=== PATIENT | female | born 1980 | race Caucasian/White ===

== ENCOUNTER 2017-02-15 09:33 | Emergency (ER) | payer MEDICARE, OTHER ==
--- NOTE | 2017-02-15 09:51 | ED ---
Back Pain HPI - General Chief Complaint: Back Pain/Injury Stated Complaint: Fell 02/13 back pain Time Seen by Provider: 02/15/17 09:45 Source: patient, RN notes reviewed Mode of arrival: ambulatory Limitations: no limitations - History of Present Illness Initial Comments: This a 36-year-old female presents emergency Department chief complaint low back pain. Patient states that Wednesday she was wearing flip-flops in which she was on wood stairs and slipped because they were slippery. Patient states she fell directly onto her back and slid down the steps. Patient states she was only 4 steps. Patient denies headache, head injury, loss consciousness, neck pain or any upper back pain or upper extremity injury. She states that she did have some pain that radiates down her right leg that has resolved. Patient is concerned that she has a history of degenerative disc disease, bulging discs and uses see [facility] Patient states she is currently sees Dr. Stevens. Patient denies any current pain medication denies any bowel bladder incontinence or retention. - Related Data Home Medications Medication Instructions Recorded Confirmed Ibuprofen [Motrin] 800 mg PO BID PRN 11/30/13 02/15/17 buPROPion XL [Wellbutrin XL] 450 mg PO DAILY 06/12/15 02/15/17 ALPRAZolam [Xanax] 0.25 mg PO DAILY PRN 02/15/17 02/15/17 Docusate [Colace] 100 mg PO BID 02/15/17 02/15/17 Hydrocodone/Acetaminophen [Brandon 1 tab PO DAILY PRN 02/15/17 02/15/17 5-325] Oxybutynin Chloride 5 mg PO BID 02/15/17 02/15/17 busPIRone HCL [Buspar] 30 mg PO BID 02/15/17 02/15/17 lamoTRIgine [LaMICtal] 100 mg PO HS 02/15/17 02/15/17 lamoTRIgine [LaMICtal] 200 mg PO DAILY 02/15/17 02/15/17 Previous Rx's Medication Instructions Recorded Cyclobenzaprine [Flexeril] 10 mg PO TID PRN #15 tab 02/15/17 Allergies Allergy/AdvReac Type Severity Reaction Status Date / Time No Known Allergies Allergy Verified 07/24/17 09:50 Review of Systems ROS Statement: Those systems with pertinent positive or pertinent negative responses have been documented in the HPI. ROS Other: All systems not noted in ROS Statement are negative. Past Medical History Past Medical History: GERD/Reflux, Neurologic Disorder, Osteoarthritis (OA) Additional Past Medical History / Comment(s): MIGRAINES. OSTEO IN LOWER BACK History of Any Multi-Drug Resistant Organisms: None Reported Past Surgical History: Appendectomy, Tubal Ligation Additional Past Surgical History / Comment(s): PELVIC LAPROSCOPY Past Anesthesia/Blood Transfusion Reactions: No Reported Reaction Past Psychological History: Anxiety, Bipolar, PTSD Smoking Status: Current every day smoker Past Alcohol Use History: Occasional Past Drug Use History: None Reported - Past Family History Mother Additional Family Medical History / Comment(s): MATERNAL GRANDMOTHER LUNG CANCER General Exam Limitations: no limitations General appearance: alert, in no apparent distress Head exam: Present: atraumatic, normocephalic, normal inspection Eye exam: Present: normal appearance, PERRL, EOMI. Absent: scleral icterus, conjunctival injection, periorbital swelling Neck exam: Present: normal inspection, full ROM. Absent: tenderness, meningismus, lymphadenopathy Respiratory exam: Present: normal lung sounds bilaterally. Absent: respiratory distress, wheezes, rales, rhonchi, stridor Cardiovascular Exam: Present: regular rate, normal rhythm, normal heart sounds. Absent: systolic murmur, diastolic murmur, rubs, gallop, clicks GI/Abdominal exam: Present: soft, normal bowel sounds. Absent: distended, tenderness, guarding, rebound, rigid Extremities exam: Present: normal inspection, full ROM, normal capillary refill. Absent: tenderness, pedal edema, joint swelling, calf tenderness Back exam: Present: full ROM (Mild discomfort), tenderness (Generalized lumbar region), paraspinal tenderness. Absent: normal inspection ( swelling noted to the lower lumbar region), CVA tenderness (R), CVA tenderness (L), vertebral tenderness Neurological exam: Present: alert, oriented X3, CN II-XII intact, reflexes normal. Absent: motor sensory deficit Skin exam: Present: warm, dry, intact, normal color. Absent: rash Course Vital Signs 02/15/17 09:36 Temperature 98.2 F Pulse Rate 72 Respiratory 17 Rate Blood Pressure 129/77 O2 Sat by Pulse 100 Oximetry Medical Decision Making - Medical Decision Making 36-year-old female presented emergency department for fall back pain. There is no acute fracture. Patient does have chronic back pain as it is. Patient we discharge has no red flecks symptoms. Disposition Clinical Impression: Lumbar back pain Disposition: HOME SELF-CARE Condition: Stable Instructions: Acute Low Back Pain (ED) Additional Instructions: Please return to the Emergency Department if symptoms worsen or any other concerns. Prescriptions: Cyclobenzaprine [Flexeril] 10 mg PO TID PRN #15 tab PRN Reason: Muscle Spasm Referrals: Imtiaz Stevens III, MD [Primary Care Provider] - 1-2 days Time of Disposition: 10:24
--- NOTE | 2017-02-15 10:10 | XR ---
EXAMINATION TYPE: XR lumbosacral spine min 4V , 5 VIEWS DATE OF EXAM ORDERED: 02/15/2017 HISTORY: Pain. COMPARISON: None. FINDINGS: The AP projection is rotated. It is therefore difficult to assess the pedicles. Vertebral body height and alignment are maintained. There is no spondylolysis or spondylolisthesis. D isc spaces are maintained. There is mild facet arthropathy on the right at L5-S1 and L4-5. IMPRESSION: 1. NO ACUTE OSSEOUS LESION. 2. MINIMAL DEGENERATIVE CHANGE.
[2017-02-15 10:46] VITALS: BP 116/67; PULSE 78; RESP 16; TEMP 98.1
== END 2017-02-15 10:46 | disposition home or self-care (01) ==
LOC: EC 09:33
DX: M54.5 Low back pain (principal); F17.200 Nicotine dependence, unspecified, uncomplicated; F31.9 Bipolar disorder, unspecified; F43.10 Post-traumatic stress disorder, unspecified; F41.9 Anxiety disorder, unspecified; Z79.899 Other long term (current) drug therapy; W10.9XXA Fall (on) (from) unspecified stairs and steps, initial encounter
CPT/HCPCS: 72110; 99283

== ENCOUNTER → 2017-11-11 | Outpatient (CLI) | payer MEDICARE, OTHER ==
[2017-11-10 14:55] VITALS: BMI 37.8
[2017-11-11 11:56] VITALS: BP 137/90; PULSE 78; RESP 16
--- NOTE | 2017-11-11 13:09 | P.CONS ---
History of Present Illness - Reason for Consult Consult date: 11/11/17 - History of Present Illness This is a 37 years old female with a chronic history of severe neck pain and low back pain, the low back pain started 8 years ago, he denies any initiating event, no history of trauma or heavy lifting or car accident, the pain is constant and increases with any activity, and radiated to the lower extremity bilaterally, patient has done physical therapy multiple times without any significant benefit, and she tried pain medication Ultram she did not benefit from it, and she is currently using Motrin 800 mg 3 times a day when necessary and [place] 10/325 when necessary, she denies any side effect of the medications, Also patient complaining of severe neck pain with radiation to the upper extremity associated with numbness and tingling sensation, she denies any motor or sensory deficit in the upper or lower extremities, she has no fever or night sweats, she has no change in the bowel movement or urination. She was evaluated by spine surgeon Dr. Iyer, and he referred her, to have interventional pain management Past Medical History Past Medical History: GERD/Reflux, Neurologic Disorder, Osteoarthritis (OA) Additional Past Medical History / Comment(s): MIGRAINES. OSTEO IN LOWER BACK, DDD, History of Any Multi-Drug Resistant Organisms: None Reported Past Surgical History: Appendectomy, Hysterectomy, Tubal Ligation Additional Past Surgical History / Comment(s): PELVIC LAPAROSCOPY, PILONIDAL CYSTECTOMY Past Anesthesia/Blood Transfusion Reactions: No Reported Reaction Past Psychological History: Anxiety, Bipolar, Panic Disorder, PTSD Smoking Status: Current every day smoker Past Alcohol Use History: Rare Additional Past Alcohol Use History / Comment(s): SMOKES 1/2PPD SINCE AGE 10 Past Drug Use History: None Reported - Past Family History Mother Additional Family Medical History / Comment(s): MATERNAL GRANDMOTHER LUNG CANCER Medications and Allergies Home Medications Medication Instructions Recorded Confirmed Type Ibuprofen [Motrin] 800 mg PO BID PRN 11/30/13 11/11/17 History buPROPion XL [Wellbutrin XL] 300 mg PO DAILY 06/12/15 11/11/17 History ALPRAZolam [Xanax] 0.25 mg PO DAILY PRN 02/15/17 11/11/17 History Docusate [Colace] 100 mg PO BID 07/24/17 04/19/18 History Hydrocodone/Acetaminophen [[place] 1 tab PO DAILY PRN 02/15/17 11/11/17 History 5-325] Oxybutynin Chloride 5 mg PO BID 02/15/17 11/11/17 History lamoTRIgine [LaMICtal] 100 mg PO HS 02/15/17 11/11/17 History lamoTRIgine [LaMICtal] 200 mg PO DAILY 02/15/17 11/11/17 History Allergies Allergy/AdvReac Type Severity Reaction Status Date / Time pecan nut Allergy Anaphylaxis Verified 11/11/17 11:42 Physical Exam Vitals: Vital Signs Pulse Resp BP Pulse Ox 11/11/17 11:43 78 16 137/90 98 Social history : smoker , NO ETOH , NO Illegaal drug use. Review of Systems : 1- Constitutional : no chills , no fever , no night sweats , 2- Ears : no ear discharge , no change in hearing 3-Nose, Mouth ,Throat ; no bleeding gums, no sore throat , no epistaxis , 4-Cardiovascular : Denies chest pain, , no orthopnea , no palpitation 5-Respiratory : Denies cough , no dyspnea , no hemoptysis 6-Gastrointestinal :, no change in bowel habits , no coffee- ground emesis . 7-Genitourinary : No hematuria , no discharge , no incontinence, 8-Musculoskeletal : No gait dysfunction , report low back pain , 9- Neurological : no ataxia , no tremor , no sezure , 10-Psychatric , no suicidal ideation no hallucination 11- Endocrine : no cold intolerence , no polyuria , no polydypsia , 12-Hematologic : no easy bleeding , no easy brusing , 13-Allergic / immunology : no angioedema , no wheezing ,no allergic rhinitis 14-Integumentary : no brttle nails , no change hair / nails , no foot/leg ulcers . Physical Examinations : 1-Constitutional : Cooperative , not in acute distress . 2-HEENT : nech ; supple , no Lymphadenopathy , no Thyromegaly , :eyes , no icterus, no photophobia . ENT : , normal oropharynx , no Thrush 3- Respiratory : Chest clear to auscultations Bilaterally , no wheezing . 4- Cardiovascular : regular rate and rhythem , S1 , S2 , no S3 , no S4. 5- Gastrointestinal: abdomen soft no tenderness , no organomegally . 6- Genitourinary : Defferred . 7-Integumentary : No cellulitis , no ulcers , normal skin turgor , no cyanotic . 8- neurologic : Cranial nerve II to XII intact , no focal neurological deffecit 9-psychatric : alert , oriented X 3 , appropriate affect , intact judgment and insight . 10-Lymphatic : no Lymphadenopathy. 11- musculoskeltal: normal gait Cervical Spine motor stregnth in the deltoid and biceps, normal right side , normal Left side motor stregnth biceps and the wrist extensors normal right side ,normal left side . motor stregnth in the triceps muscle . normal Right side , normal Left side deep tendon reflexes normal at the biceps , normal at Brachioradialis , normal at triceps. positive cervical facet loading test . Multiple trigger points in the cervical paravertebral muscles Thoracic spine examination= multiple trigger point identified in the thoracic paravertebral muscles Lumber spine moter stegnth lower extremities ,thigh and legs 5/5 Right side , 5/5 Left side deep tendon reflexes : normal Knee Jerk , normal ankle Jerk positive lumber facet Loading Test Range of motion of the lumbar spine Flexion 30 degrees, extension 10 degrees strait leg raising test , positive at 30 degree Fabere test positive RT and positive LT . Multiple trigger points in the lumbar paravertebral muscles Results Comments: MRI of the cervical spine done jun 2017, at [facility] showed C3 4 right foraminal disc protrusion and C4 5 disc protrusion C5-C6 right foraminal disc protrusion. MRI of the lumbar spine done June 2017 showed L3 4 disc bulging at L4 5 disc protrusion L5-S1 facet degeneration Assessment and Plan Plan: Assessment and plan=1-cervical radiculopathy 2-cervical degenerative disc disease 3-lumbar radiculopathy 4-lumbar spondylosis with facet arthropathy. 5-myofascial pain syndrome/fibromyalgia. Because patient complaining of more pain in the lumbar area and we can start the treatment in the lumbar area we will schedule patient to have lumbar epidural steroid injections, we will do the procedure twice and if she benefited then will focus our attention to the cervical area to do cervical epidural steroid injections, if patient had no benefit from the lumbar epidural steroid injections , then we will consider doing diagnostic medial branch block lumbar area, procedure risk and benefits and alternatives discussed with the patient and she agreed with proceeding, Patient could benefit from the TENS unit trial, Patient currently getting prescription refill of her pain medication from her primary care doctor [place] there and she is getting [place] 5/325 ,and Motrin 800 mg 3 times a day she denies any side effect of the medication, and she reported that the current pain medication helping her control her pain and all activities of daily livings. Time with Patient: Greater than 30
== END | disposition home or self-care (01) ==
LOC: PNWHC3 11:38
PROVIDERS: ATTEND Specialist
DX: M50.10 Cervical disc disorder with radiculopathy, unspecified cervical region (principal); M47.26 Other spondylosis with radiculopathy, lumbar region; M46.96 Unspecified inflammatory spondylopathy, lumbar region; M19.90 Unspecified osteoarthritis, unspecified site; M79.1 Myalgia; R29.90 Unspecified symptoms and signs involving the nervous system; M79.7 Fibromyalgia; F17.200 Nicotine dependence, unspecified, uncomplicated; Z91.010 Allergy to peanuts; Z79.899 Other long term (current) drug therapy; Z79.891 Long term (current) use of opiate analgesic
CPT/HCPCS: 99211

== ENCOUNTER 2017-11-29 06:17 | Day surgery (SDC) | payer MEDICARE, OTHER ==
[2017-11-26 12:30] VITALS: BMI 37.8
[2017-11-29] MEDS ORDERED: LACTATED RINGERS 1,000 ML IV SCH (07:15)
[2017-11-29 07:20] VITALS: RESP 16; TEMP 98.5
--- NOTE | 2017-11-29 07:57 | P.PCN ---
Date of Procedure: 11/29/17 Surgeon: Miky Erwin Pathology: none sent Condition: stable Disposition: PACU Description of Procedure: PREOPERATIVE DIAGNOSIS: 1-Lumbar radiculitis. POSTOPERATIVE DIAGNOSIS: 1-Lumbar radiculitis. PROCEDURE 1. Lumbar epidural steroid injection under fluoroscopic guidance at the L4-L5 level. 2. Lumbar epidurogram. ANESTHESIA: Local with 1% lidocaine; IV sedation with Versed/fentanyl. EBL: Minimal PROCEDURE INDICATION: The patient with low back pain and radiculitis symptoms unresponsive to conservative treatment, presents for LESI today. Fluoroscopy was used to optimize visualization of the needle placement and to maximize safety. No use of blood thinners,. PROCEDURE DESCRIPTION / TECHNIQUE: The patient was seen and identified in the preoperative area. Risks, benefits, complications, and alternatives were discussed with the patient, including but not limited to bleeding, infection, nerve damage, allergic reactions to medications, and incomplete pain relief. The patient agreed to proceed with the procedure and signed the consent after all questions were answered. IV was started, and vital signs were stable. Patient was taken to the OR and time out was completed to confirm patient position, procedure, laterality of pain, and allergies. The patient was placed in the prone position on procedure table and a pillow was placed under the abdomen to reduce lumbar lordosis. The lumbosacral area was prepped and draped in the usual sterile fashion. Critical pause was taken. Vital signs were closely monitored during the procedure. Conscious sedation was used during the procedure to decrease patients anxiety. Using anterior-posterior fluoroscopy, the L4-L5 interlaminar space was identified and the skin over this site was marked and then infiltrated with 1% lidocaine subcutaneously. Subsequently, a 20-gauge 6-inch Tuohy epidural needle was inserted and advanced toward the epidural space using the Loss of resistance technique and guided by AP and lateral fluoroscopy. The correct needle position in the epidural space was verified with the injection of 2 mL of the water soluble contrast dye Isovue 200 contrast and observing an excellent epidurogram with the epidural spread of the dye, after negative aspiration for blood and CSF and in the absence of paresthesias. Again after negative aspiration, a 6 ml mixture containing 80 mg of Depo Medrol and 2 ml of preservative free Normal Saline, and 2 ml of preservative free lidocaine 1% solution was injected and a washout of epidurogram was seen. Needle was withdrawn intact, skin was cleansed, and bandages were applied. COMPLICATIONS: None COMMENTS: DISPOSITION / PLANS: The patient was placed in a supine position and transferred to the recovery area in a stable condition for observation. There was no evidence of lower extremity motor or sensory deficit after the procedure. Patient was discharged from the recovery room after meeting discharge criteria. Home discharge instructions were given to the patient by the staff. The patient was reexamined prior to discharge and there were no issues. The patient will schedule a follow up in the clinic in 2-4 weeks.
[2017-11-29] MEDS ORDERED: IV FLUID CONTINUATION 1,000 ML IV ONE (07:59)
[2017-11-29 08:24] VITALS: BP 118/77; PULSE 69
--- NOTE | 2017-11-29 08:49 | FL ---
EXAMINATION TYPE: FL guided pain mgmt statistic DATE OF EXAM: 11/29/2017 HISTORY: Flouroscopy time 12 seconds of fluoroscopy provided. IMPRESSION: 1. Fluoroscopy time.
== END 2017-11-29 08:40 | disposition home or self-care (01) ==
LOC: ORPAIN 06:17
PROVIDERS: ATTEND Anesthesiology
DX: G89.29 Other chronic pain (principal); M54.16 Radiculopathy, lumbar region; K21.9 Gastro-esophageal reflux disease without esophagitis; M47.816 Spondylosis without myelopathy or radiculopathy, lumbar region; R29.90 Unspecified symptoms and signs involving the nervous system; F41.9 Anxiety disorder, unspecified; F31.9 Bipolar disorder, unspecified; F41.0 Panic disorder [episodic paroxysmal anxiety]; F43.10 Post-traumatic stress disorder, unspecified; F17.210 Nicotine dependence, cigarettes, uncomplicated; Z79.899 Other long term (current) drug therapy; Z91.018 Allergy to other foods
CPT/HCPCS: 62323; J2250; J1030; J3010; Q9966

== ENCOUNTER 2017-12-23 06:19 | Day surgery (SDC) | payer MEDICARE, OTHER ==
[2017-12-15 15:49] VITALS: BMI 37.8
[2017-12-23 06:53] VITALS: TEMP 98.1
[2017-12-23] MEDS ORDERED: LIDOCAINE 1% 20 ML VIAL (10MG/ML) FOR IV START INTRADERMA ONE (06:53)
[2017-12-23] MEDS ORDERED: LACTATED RINGERS 1,000 ML IV ONE (06:53)
[2017-12-23] MEDS ORDERED: LACTATED RINGERS 1,000 ML IV SCH (07:00)
--- NOTE | 2017-12-23 07:35 | P.PCN ---
Date of Procedure: 12/23/17 Surgeon: Pedro Mcghee Description of Procedure: PREOPERATIVE DIAGNOSIS: 1- Lumbar Degenerative Disc Diseases 2-Lumbar spondylosis with Facet arthropathy without myelopathy POSTOPERATIVE DIAGNOSIS: 1-Lumber Degenerative Disc Diseases 2-Lumbar spondylosis with Facet arthropathy without myelopathy PROCEDURE Lumbar epidural steroid injection under fluoroscopic guidance at the L4 5 level. ANESTHESIA: Local with 1% lidocaine 3 ml and IV sedation with Versed 2 mg EBL: Minimal PROCEDURE INDICATION: The patient with low back pain and radiculitis symptoms unresponsive to conservative treatment. Fluoroscopy was used to optimize visualization of the needle placement and to maximize safety. It is undergone one previous lumbar steroid injection. She says is substantially reduced her back and leg pain. She presents today and request repeat of this procedure. PROCEDURE DESCRIPTION / TECHNIQUE: The patient was seen and identified in the preoperative area. Risks, benefits , complications including but not limited to infections ,bleeding ,allergic reaction to the medications ,nerve damage and not complete pain relief , and alternatives were discussed with the patient. The patient agreed to proceed with the procedure and signed the consent. IV was started, and vital signs were stable. Patient was taken to the OR and time out was completed. The patient was placed in the prone position on procedure table and a pillow was placed under the abdomen to reduce lumbar lordosis. The lumbosacral area was prepped and draped in the usual sterile fashion.ere closely monitored during the procedure. Conscious sedation was used during the procedure to decrease patients anxiety. Vital signs was monitered during the entire procedure. Using anterior-posterior fluoroscopy, the L5-S1 interlaminar space was identified and the skin over this site was marked and then infiltrated with 1% lidocaine subcutaneously. Subsequently, a 20-gauge Tuohy epidural needle was inserted and advanced toward the epidural space using the Loss of resistance technique and guided by AP and lateral fluoroscopy. The correct needle position in the epidural space was verified with the injection of contrast and observing an excellent epidurogram with the epidural spread of the dye, after negative aspiration for blood and CSF and in the absence of paresthesias. Again after negative aspiration, a 6 ml mixture containing 80 mg depomedrol was injected and a washout of epidurogram was seen. Needle was withdrawn intact, skin was cleansed, and bandages were applied. COMPLICATIONS: None DISPOSITION / PLANS: The patient was placed in a supine position and transferred to the recovery area in a stable condition for observation. There was no evidence of lower extremity motor or sensory deficit after the procedure. Patient was discharged from the recovery room after meeting discharge criteria. Home discharge instructions were given to the patient by the staff. The patient was reexamined prior to discharge. The patient will schedule a follow up in the clinic in 2-4 weeks.
[2017-12-23] MEDS ORDERED: IV FLUID CONTINUATION 1,000 ML IV ONE (07:49)
[2017-12-23 07:51] VITALS: RESP 18
[2017-12-23 08:03] VITALS: BP 116/67; PULSE 80
--- NOTE | 2017-12-23 11:06 | FL ---
Fluoroscopy HISTORY: Pain 1 seconds fluoroscopy time supplied to the referring clinician. 1 intraoperative C-arm images docume nt the procedure. See dictated report from anesthesia.
== END 2017-12-23 08:28 | disposition home or self-care (01) ==
LOC: ORPAIN 06:19
PROVIDERS: ATTEND Pain Medicine Pain Medicine
DX: M47.26 Other spondylosis with radiculopathy, lumbar region (principal); M51.16 Intervertebral disc disorders with radiculopathy, lumbar region; Z91.018 Allergy to other foods
CPT/HCPCS: 62323

== ENCOUNTER 2018-01-12 07:42 | Day surgery (SDC) | payer MEDICARE, OTHER ==
[~2018-01-12 07:42] MED LIST: LACTATED RINGERS 1,000 ML IV SCH
[2018-01-12 07:51] VITALS: RESP 18; TEMP 98.1
[2018-01-12] MEDS ORDERED: LIDOCAINE 1% 20 ML VIAL (10MG/ML) FOR IV START INTRADERMA ONE (08:04)
[2018-01-12] MEDS ORDERED: LACTATED RINGERS 1,000 ML IV ONE (08:04)
--- NOTE | 2018-01-12 08:20 | P.OP ---
Date of Procedure: 01/12/18 Surgeon: Pedro Mcghee Description of Procedure: PREOPERATIVE DIAGNOSIS: Bilateral lumbar radiculopathy POSTOPERATIVE DIAGNOSIS: Same PROCEDURE Lumbar epidural steroid injection under fluoroscopic guidance at the L4 5 level. ANESTHESIA: Local with 1% lidocaine 3 ml and IV sedation with Versed 2 mg and 100 g of fentanyl EBL: Minimal PROCEDURE INDICATION: This is a very pleasant 37-year-old woman who presents today for repeat of lumbar epidural steroid injection. This is her third injection in this series. She reports that after her last injection she had greater than 50% reduction of her symptoms. Approximately 5 days ago, her symptoms started returning for no clear obvious reason. She presents today for repeat of this procedure. PROCEDURE DESCRIPTION / TECHNIQUE: The patient was seen and identified in the preoperative area. Risks, benefits , complications including but not limited to infections ,bleeding ,allergic reaction to the medications ,nerve damage and not complete pain relief , and alternatives were discussed with the patient. The patient agreed to proceed with the procedure and signed the consent. IV was started, and vital signs were stable. Patient was taken to the OR and time out was completed. The patient was placed in the prone position on procedure table and a pillow was placed under the abdomen to reduce lumbar lordosis. The lumbosacral area was prepped and draped in the usual sterile fashion.ere closely monitored during the procedure. Conscious sedation was used during the procedure to decrease patients anxiety. Vital signs was monitered during the entire procedure. Using anterior-posterior fluoroscopy, the L5-S1 interlaminar space was identified and the skin over this site was marked and then infiltrated with 1% lidocaine subcutaneously. Subsequently, a 20-gauge Tuohy epidural needle was inserted and advanced toward the epidural space using the Loss of resistance technique and guided by AP and lateral fluoroscopy. The correct needle position in the epidural space was verified with the injection of contrast and observing an excellent epidurogram with the epidural spread of the dye, after negative aspiration for blood and CSF and in the absence of paresthesias. Again after negative aspiration, a 80 mg of Depo-Medrol. Needle was withdrawn intact, skin was cleansed, and bandages were applied. COMPLICATIONS: None DISPOSITION / PLANS: The patient was placed in a supine position and transferred to the recovery area in a stable condition for observation. There was no evidence of lower extremity motor or sensory deficit after the procedure. Patient was discharged from the recovery room after meeting discharge criteria. Home discharge instructions were given to the patient by the staff. The patient was reexamined prior to discharge. The patient will schedule a follow up in the clinic in 2-4 weeks.
[2018-01-12] MEDS ORDERED: IV FLUID CONTINUATION 1,000 ML IV ONE ×2 (08:34)
[2018-01-12 08:51] VITALS: BP 106/72; PULSE 65
--- NOTE | 2018-01-12 09:24 | FL ---
EXAMINATION TYPE: FL guided pain mgmt statistic DATE OF EXAM: 01/12/2018 HISTORY: Flouroscopy time 2 seconds of fluoroscopy provided. IMPRESSION: 1. Fluoroscopy time.
== END 2018-01-12 09:05 | disposition home or self-care (01) ==
LOC: ORPAIN 07:42
PROVIDERS: ATTEND Pain Medicine Pain Medicine
DX: M54.16 Radiculopathy, lumbar region (principal); Z91.018 Allergy to other foods
CPT/HCPCS: 62323; J2250; J1030; J3010

== ENCOUNTER 2018-01-13 21:21 | Emergency (ER) | payer MEDICARE, OTHER ==
[2018-01-13 21:26] VITALS: BP 148/77; PULSE 77; RESP 18; TEMP 98.4
--- NOTE | 2018-01-13 22:07 | ED ---
General Adult HPI - General Chief complaint: ENT Stated complaint: FB in ear Time Seen by Provider: 01/13/18 21:28 Source: patient, RN notes reviewed Mode of arrival: ambulatory Limitations: no limitations - History of Present Illness Initial comments: This is a 37-year-old female who presents to the emergency department with chief complaint of right ear foreign body. Patient states that 2 hours prior to arrival she was cleaning her ears with a Q-tip. She states that the end of the Q-tip broke off and lodged in her ear. She states that she did try to remove the foreign body by flushing out her ear with hydrogen peroxide. This was unsuccessful. Denies fever, chills, chest pain, shortness of breath, abdominal pain, nausea or vomiting, constipation or diarrhea, dysuria or hematuria, numbness or tingling, headache or vision changes. - Related Data Home Medications Medication Instructions Recorded Confirmed Ibuprofen [Motrin] 800 mg PO BID PRN 11/30/13 01/12/18 buPROPion XL [Wellbutrin XL] 300 mg PO DAILY 06/12/15 01/12/18 ALPRAZolam [Xanax] 0.25 mg PO TID PRN 02/15/17 01/12/18 Docusate [Colace] 100 mg PO BID 02/15/17 01/12/18 Hydrocodone/Acetaminophen [[place] 1 tab PO DAILY PRN 02/15/17 01/12/18 5-325] Oxybutynin Chloride 5 mg PO BID 02/15/17 01/12/18 lamoTRIgine [LaMICtal] 100 mg PO HS 02/15/17 01/12/18 lamoTRIgine [LaMICtal] 200 mg PO DAILY 02/15/17 01/12/18 Allergies Allergy/AdvReac Type Severity Reaction Status Date / Time pecan nut Allergy Anaphylaxis Verified 01/13/18 21:26 Review of Systems ROS Statement: Those systems with pertinent positive or pertinent negative responses have been documented in the HPI. ROS Other: All systems not noted in ROS Statement are negative. Past Medical History Past Medical History: GERD/Reflux, Osteoarthritis (OA) Additional Past Medical History / Comment(s): MIGRAINES. OSTEOARTHRITIS IN LOWER BACK, DDD, bulging and herniated disks, History of Any Multi-Drug Resistant Organisms: None Reported Past Surgical History: Appendectomy, Hysterectomy, Tubal Ligation Additional Past Surgical History / Comment(s): PELVIC LAPAROSCOPY, PILONIDAL CYSTECTOMY, pain clinic procedure Past Anesthesia/Blood Transfusion Reactions: Motion Sickness Past Psychological History: Anxiety, Bipolar, Panic Disorder, PTSD Smoking Status: Current every day smoker Past Alcohol Use History: Rare Past Drug Use History: None Reported - Past Family History Mother Family Medical History: No Reported History Additional Family Medical History / Comment(s): . General Exam - General Exam Comments Initial Comments: General: Awake and alert, well-developed; in no apparent distress. HEENT: Head atraumatic, normocephalic. Pupils are equal, round and reactive to light. Extraocular movements intact. Oropharynx moist without erythema or exudate. Neck: Supple. Normal ROM. Cardiovascular: Regular rate and rhythm. No murmurs, rubs or gallops. Chest symmetrical. Respiratory: Lungs clear to auscultation bilaterally. No wheezes, rales or rhonchi. Normal respiratory effort with no use of accessory muscles. Musculoskeletal: Normal ROM, no tenderness bilateral upper and lower extremities. Ambulating normally. Skin: Rafael Pena, warm and dry without rashes or lesions. Neurological: Alert and oriented x3. CN II-XII grossly intact. Speech is fluent and answers are appropriate. No focal neuro deficits. Psychiatric: Normal mood and affect. No overt signs of depression or anxiety noted. Limitations: no limitations ENT exam: Present: TM's normal bilaterally, normal external ear exam, other (no foreign body noted within bilateral external ear canals) Course Vital Signs 01/13/18 21:25 Temperature 98.4 F Pulse Rate 77 Respiratory 18 Rate Blood Pressure 148/77 O2 Sat by Pulse 98 Oximetry Medical Decision Making - Medical Decision Making This is a 37-year-old female who presents to the emergency department with chief complaint of foreign body in her right ear. Patient states while she was cleaning her right ear with a Q-tip she removed the Q-tip and the end of it was missing. She stated she believed it was stuck in her right ear. She did try flushing it out at home without success. On physical examination, there did appear to be a white substance within the right ear canal. An attempt was made to remove this and it was noted to be skin of the ear canal. No foreign body was identified. This case was discussed with attending physician, Dr. Lee who also evaluated patient. No trauma to the TM. Mild bleeding to the external ear canal. Patient will be given referral to ENT. Recommended follow- up within 1-2 days. Patient is in no acute distress and will be discharged home at this time. She is in agreement with plan and voices understanding. All questions answered. Disposition Clinical Impression: Foreign body in ear Disposition: HOME SELF-CARE Condition: Good Instructions: Ear Foreign Body (ED) Additional Instructions: Please follow-up with Dr. Pena, ENT within 1-2 days. Please follow up with primary care provider within 1-2 days. Return to emergency department if symptoms should worsen or any concerns arise. Is patient prescribed a controlled substance at d/c from ED?: No Referrals: Imtiaz Stevens III, MD [Primary Care Provider] - 1-2 days Ramírez Pena MD [STAFF PHYSICIAN] - 1-2 days Time of Disposition: 22:29
== END 2018-01-13 22:33 | disposition home or self-care (01) ==
LOC: EC 21:21
DX: T16.1XXA Foreign body in right ear, initial encounter (principal); F31.9 Bipolar disorder, unspecified; F41.0 Panic disorder [episodic paroxysmal anxiety]; F43.10 Post-traumatic stress disorder, unspecified; F17.200 Nicotine dependence, unspecified, uncomplicated; Z79.899 Other long term (current) drug therapy; Z91.018 Allergy to other foods
CPT/HCPCS: 99282

== ENCOUNTER → 2018-02-08 | Outpatient (CLI) | payer MEDICARE, OTHER ==
[2018-02-08 13:33] VITALS: BP 133/76; PULSE 71; RESP 16
--- NOTE | 2018-02-08 13:54 | P.PN ---
Subjective Progress Note Date: 02/08/18 Principal diagnosis: Lumbar spondylosis without myelopathy and lumbar radiculopathy This is a 47-year-old female with lower back pain with radiation to the lower extremities. The patient denies any weakness in the lower extremities however she does have history of bladder and bowel problems due to her diagnosis of IBS. She received 3 epidural steroid injections which helped her pain for about a month after each injection. She tried physical therapy previously and she is going to get TENS unit shortly. Objective - Vital Signs Vital signs: Vital Signs Temp Pulse 71 02/08/18 13:21 Resp 16 02/08/18 13:21 BP 133/76 02/08/18 13:21 Pulse Ox 98 02/08/18 13:21 Intake & Output 02/07/18 02/08/18 02/08/18 18:59 06:59 18:59 Weight 99.79 kg - Constitutional General appearance: Present: obese - EENT Eyes: Present: PERRLA - Respiratory Respiratory: bilateral: CTA - Cardiovascular Heart sounds: normal: S1, S2 - Neurologic Neurologic Comment(s): Neuro exam of the lower extremities showed normal and symmetrical deep tendon reflexes and normal symmetrical muscle strength. She has significant tenderness in the lumbar paravertebral area and facet loading test was positive bilaterally. Straight leg raising test negative bilaterally. Neurologic: Present: CNII-XII intact - Psychiatric Psychiatric: Present: A&O x's 3, appropriate affect Assessment and Plan Plan: A 37-year-old female with lumbar spondylosis without myelopathy and lumbar radiculopathy.she received 3 lumbar epidural steroid injection which gave her 1 month of pain relief. Her back pain is more intense than her legs pain. At this point I asked the patient to use TENS unit to try to help her pain and she is going to get that hopefully with uncovertebral weeks. She takes [place] 5 mg once every day or every other day as she states plus Motrin 800 mg twice a day and she gets these medications from her primary care physician. She might be a candidate for lumbar diagnostic medial branch block . We will see the patient 2 months from now, and if her back pain is getting worse we might need to do the above-mentioned procedure before her next visit.
== END | disposition home or self-care (01) ==
LOC: PNWHC3 12:55
PROVIDERS: ATTEND Anesthesiology
DX: M47.26 Other spondylosis with radiculopathy, lumbar region (principal); Z79.891 Long term (current) use of opiate analgesic; Z79.1 Long term (current) use of non-steroidal anti-inflammatories (NSAID)
CPT/HCPCS: 99211

== ENCOUNTER → 2018-04-21 | Outpatient (CLI) | payer MEDICARE, OTHER ==
[2018-04-21 12:16] VITALS: BP 140/80; PULSE 81; RESP 16
--- NOTE | 2018-04-21 13:09 | P.PAINPG ---
Subjective Progress Note Date: 04/21/18 This is follow-up visit for this patient with a history of severe and chronic low back pain secondary to lumbar radiculitis, lumbar spondylosis, she is complaining of severe neck pain with radiation to the upper extremity associated with numbness and tingling sensation We have done an interventional pain procedure Lumbar epidural steroid injections 3 , get a few weeks of pain relief after each injection The patient currently on Motrin 800 mg 3 times a day and [place] 5/325 every 6 hours Patient denies any side effect of the medication , patient denies any excessive drowsiness or sleepiness, patient denies any suicidal ideation, Patient reported that the current medication is helping to control the pain and improve the activity of daily livings, Patient denies any motor or sensory deficit, denies any change in the bowel movement or urination, patient denies any fever or night sweats. The patient reported that her neck pain is more than the low back. Objective - Vital Signs Vital signs: Vital Signs Temp Pulse 81 04/21/18 12:09 Resp 16 04/21/18 12:09 BP 140/80 04/21/18 12:09 Pulse Ox 97 04/21/18 12:09 Intake & Output 04/20/18 04/21/18 04/21/18 18:59 06:59 18:59 Weight 102.058 kg - Exam Physical Examinations : 1-Constitutiona : Cooperative , not in acute distress . 2-HEENT : nech ; supple , no Lymphadenopathy , normal thyroid size . eyes : no ptosis , no icterus , no photophobia . ENT : normal of hearing , normal oropharynx , no Thrush . 3- Respiratory : Chest clear to auscultations Bilaterally , no wheezing , no Rhonchi . 4- Cardiovascular : regular rate and rhythem , S1 , S2 , no S3 , no S4. 5- Gastrointestinal : abdomen soft no tenderness , bowel sounds , no organomegally . 6- Genitourinary : Defferred . 7- neurologic : Cranial nerve II to XII intact , no focal neurological deffecit . 8-psychatric : alert , oriented X 3 , appropriate affect , intact judgment and insight . 9-Lymphatic : no Lymphadenopathy . 10- musculoskeltal : Cervical Spine motor stregnth in the deltoid and biceps, normal right side , normal Left side motor stregnth biceps and the wrist extensors normal right side ,normal left side . motor stregnth in the triceps muscle . normal Right side , normal Left side deep tendon reflexes normal at the biceps , normal at Brachioradialis , normal at triceps. positive cervical facet loading test . Lumber spine moter stegnth lower extremities ,thigh and legs 5/5 Right side , 5/5 Left side deep tendon reflexes : normal Knee Jerk , normal ankle Jerk positive lumber facet Loading Test Range of motion of the lumbar spine Flexion 30 degrees, extension 10 degrees strait leg raising test negative bilaterally Fabere test negative bilaterally. MRI of the cervical spine multilevel bulging disc disease and multilevel foraminal stenosis Assessment and Plan Plan: Assessment and plan= 1-lumbar degenerative disc disease , 2-lumbar spondylosis. 3-cervical radiculopathy 4-cervical degenerative disc disease 5-cervical foraminal stenosis Patient could benefit from cervical epidural steroid injections under fluoroscopy guidance pateints could benefit from Lyrica 25 mg twice a day She'll continue to get prescription for [place] 5/ 320 far from her primary care Time with Patient: Less than 30 PQRS Measure Charge Sheet Measure #130: Documentation of Current Meds in Medical Chart: Patient's medications documented in chart Measure #226: Tobacco Use: Screen & Cessation Intervention: Pt screened for tobacco use AND intervention given Measure #111: Pneumonia Vaccination: Pneumococcal vaccine NOT administered or previously given Measure #47: Advance Care Plan: Advance care planning discussed & documented, pt chose/unable to give Measure #412: Opioid Treatment Agreement: No documentation of signed opioid treatment agreement Measure #408: Opioid Therapy Follow-up Evaluation: Patient had NO f/u eval minimum every 3 months during opioid therapy Measure #317: Preventitive Care & Scrn High Bld Press & F/U: Normal blood pressure, f/u not required Measure #128: Body Mass Index (BMI) Screening & Follow-up: BMI documented ABOVE normal parameters - f/u documented Measure #131: Pain Assessment & Follow-up: Pain positive & plan documented, Follow-up scheduled Measure #431: Unhealthy Alcohol Use Preventative Care & Scrn: Patient not identified as an unhealthy alcohol user PQRS Narrative: Smoking Status Current every day smoker Do You Want the Pneumonia No Vaccine AT THIS TIME? Blood Pressure 140/80 Pain Intensity [Lower 6 Generalized] Scale Used Numeric (1 - 10) Hx Alcohol Use (MH) No Home Medications: Ambulatory Orders Ibuprofen [Motrin] 800 mg PO BID PRN 11/30/13 buPROPion XL [Wellbutrin XL] 300 mg PO DAILY 06/12/15 ALPRAZolam [Xanax] 0.25 mg PO TID PRN 02/15/17 Docusate [Colace] 100 mg PO BID 02/15/17 Hydrocodone/Acetaminophen [[place] 5-325] 1 tab PO DAILY PRN 02/15/17 Oxybutynin Chloride 5 mg PO BID 02/15/17 lamoTRIgine [LaMICtal] 100 mg PO HS 02/15/17 lamoTRIgine [LaMICtal] 200 mg PO DAILY 02/15/17 Controlled Substance Measures - Controlled Substance Measures Is patient prescribed a controlled substance at discharge?: No When asked, does pt state using other controlled substances?: No If prescribed controlled substance>3 days was MAPS reviewed?: No If Rx opioid, was Start Talking consent form obtained?: No If opioid is for acute pain is fill amount 7 days or less?: No Was information provided regarding opioid addiction?: No
== END | disposition home or self-care (01) ==
LOC: PNWHC3 11:46
PROVIDERS: ATTEND Specialist
DX: M51.36 Other intervertebral disc degeneration, lumbar region (principal); M47.816 Spondylosis without myelopathy or radiculopathy, lumbar region; M99.71 Connective tissue and disc stenosis of intervertebral foramina of cervical region; M50.10 Cervical disc disorder with radiculopathy, unspecified cervical region; F17.200 Nicotine dependence, unspecified, uncomplicated; Z79.899 Other long term (current) drug therapy; Z79.891 Long term (current) use of opiate analgesic
CPT/HCPCS: 99211

== ENCOUNTER 2018-05-05 07:34 | Day surgery (SDC) | payer MEDICARE, OTHER ==
[2018-04-28 17:03] VITALS: BMI 38.6
[2018-05-05 08:26] VITALS: TEMP 98.1
[2018-05-05] MEDS ORDERED: LIDOCAINE 1% 20 ML VIAL (10MG/ML) FOR IV START INTRADERMA ONE (08:38)
--- NOTE | 2018-05-05 09:57 | P.PCN ---
Date of Procedure: 05/05/18 Procedure(s) Performed: . PROCEDURE 1. Cervical epidural steroid injection under fluoroscopic guidance, C7-T1 2. Cervical epidurogram. PREOPERATIVE DIAGNOSIS: 1- Cervical Degenerative Disc Diseases 2- Cervical radiculopathy., 3-cervical Foraminal stenosis POSTOPERATIVE DIAGNOSIS: : 1- Cervical Degenerative Disc Diseases , 2- Cervical radiculopathy. 3-,cervical foraminal stenosis . ANESTHESIA: Local anesthesia with lidocaine 1 % , and moderate sedation, with Versed 2 mg and Fentanyl 100 mcg. EBL 0 PROCEDURE INDICATION: The patient with neck pain and radiculitis unresponsive to conservative treatment consents for procedure. PROCEDURE DESCRIPTION / TECHNIQUE: The patient was seen and identified in the preoperative area. Risks, benefits, complications, including but not limited to infections ,bleeding , allergic reactions to the medications ,and not complete pain releife, and alternatives were discussed with the patient, the patient agreed to proceed with the procedure and signed the consent. Patient was taken to the OR and time out was completed. The patient was placed in the prone position on the procedure table. A pillow was placed under the patients chest to increase the cervical interlaminar space. The cervical area was prepped and draped in the usual sterile fashion. Vital signs were closely monitored during the procedure. Conscious sedation was used during the procedure to decrease patients anxiety. Using anterior-posterior fluoroscopy, the C7-T1 interlaminar space was identified and the skin over this site was marked and then infiltrated with 1% lidocaine subcutaneously. Subsequently, a 20-gauge 3-1/2-inch Tuohy epidural needle was inserted and advanced toward the epidural space by means of the `` hanging-drop technique and guided by AP and lateral fluoroscopy. The correct needle position in the epidural space was verified with the injection of 2 mL of the water soluble contrast dye [id number]-200 and observing an excellent epidurogram with the epidural spread of the dye, after negative aspiration for blood and CSF and in the absence of paresthesias. Again after negative aspiration, mixture containing 20 mg Dexamethasone and 2 ml of preservative- free normal saline injected and a washout of epidurogram was seen. Needle was withdrawn intact, skin was cleansed, and bandages were applied. Complications= none. Disposition= patient was placed in supine position and transferred to the recovery room area in stable condition and there was no evidence of upper or lower extremity motor or sensory deficit after the procedure patient was discharged from recovery room after discharge criteria met and home discharge instructions was given by the staff and patient will follow with the pain clinic in 2-4 weeks
[2018-05-05] MEDS ORDERED: IV FLUID CONTINUATION 1,000 ML IV ONE (10:06)
[2018-05-05 10:23] VITALS: BP 114/78; PULSE 78; RESP 18
--- NOTE | 2018-05-05 13:29 | FL ---
Fluoroscopy HISTORY: Pain 4 seconds fluoroscopy time supplied to the referring clinician. 1 intraoperative C-arm images docume nt the procedure. See dictated report from anesthesia.
== END 2018-05-05 10:38 | disposition home or self-care (01) ==
LOC: ORPAIN 07:34
PROVIDERS: ATTEND Specialist
DX: G89.29 Other chronic pain (principal); M50.10 Cervical disc disorder with radiculopathy, unspecified cervical region; M48.02 Spinal stenosis, cervical region; Z79.891 Long term (current) use of opiate analgesic; Z79.899 Other long term (current) drug therapy
CPT/HCPCS: 62321; J2250; J1100; J3010; Q9966

== ENCOUNTER → 2018-05-23 | Day surgery (SDC) | payer MEDICARE, OTHER ==
[2018-05-16 13:00] VITALS: BMI 38.6
[~2018-05-23] MED LIST changes: -LACTATED RINGERS 1,000 ML IV SCH; +SODIUM CHLORIDE 0.9% 500 ML 500 ML IV SCH
[2018-05-23 07:40] VITALS: RESP 18; TEMP 98.1
--- NOTE | 2018-05-23 08:12 | P.PCN ---
Date of Procedure: 05/23/18 Procedure(s) Performed: . PROCEDURE 1. Cervical epidural steroid injection under fluoroscopic guidance, C7-T1 2. Cervical epidurogram. PREOPERATIVE DIAGNOSIS: 1- Cervical Degenerative Disc Diseases 2- Cervical radiculopathy., 3-cervical foraminal stenosis POSTOPERATIVE DIAGNOSIS: : 1- Cervical Degenerative Disc Diseases , 2- Cervical radiculopathy. 3-,cervical foraminal stenosis. ANESTHESIA: Local anesthesia with lidocaine 1 % , and moderate sedation, with Versed 2 mg and Fentanyl 100 mcg. EBL 0 PROCEDURE INDICATION: The patient with neck pain and radiculitis unresponsive to conservative treatment consents for procedure. PROCEDURE DESCRIPTION / TECHNIQUE: The patient was seen and identified in the preoperative area. Risks, benefits, complications, including but not limited to infections ,bleeding , allergic reactions to the medications ,and not complete pain releife, and alternatives were discussed with the patient, the patient agreed to proceed with the procedure and signed the consent. Patient was taken to the OR and time out was completed. The patient was placed in the prone position on the procedure table. A pillow was placed under the patients chest to increase the cervical interlaminar space. The cervical area was prepped and draped in the usual sterile fashion. Vital signs were closely monitored during the procedure. Conscious sedation was used during the procedure to decrease patients anxiety. Using anterior-posterior fluoroscopy, the C7-T1 interlaminar space was identified and the skin over this site was marked and then infiltrated with 1% lidocaine subcutaneously. Subsequently, a 20-gauge 3-1/2-inch Tuohy epidural needle was inserted and advanced toward the epidural space by means of the `` hanging-drop technique and guided by AP and lateral fluoroscopy. The correct needle position in the epidural space was verified with the injection of 2 mL of the water soluble contrast dye [id number]-200 and observing an excellent epidurogram with the epidural spread of the dye, after negative aspiration for blood and CSF and in the absence of paresthesias. Again after negative aspiration, mixture containing 20 mg Dexamethasone , and 2 ml of preservative- free normal saline injected and a washout of epidurogram was seen. Needle was withdrawn intact, skin was cleansed, and bandages were applied. Complications= none. Disposition= patient was placed in supine position and transferred to the recovery room area in stable condition and there was no evidence of upper or lower extremity motor or sensory deficit after the procedure patient was discharged from recovery room after discharge criteria met and home discharge instructions was given by the staff and patient will follow with the pain clinic in 2-4 weeks
[2018-05-23 08:31] VITALS: PULSE 87
[2018-05-23 08:51] VITALS: BP 109/74
--- NOTE | 2018-05-23 09:18 | FL ---
Fluoroscopy HISTORY: Pain 6 seconds fluoroscopy time supplied to the referring clinician. 1 intraoperative C-arm images docume nt the procedure. See dictated report from anesthesia.
== END | disposition home or self-care (01) ==
LOC: ORPAIN 07:05
PROVIDERS: ATTEND Specialist
DX: M50.10 Cervical disc disorder with radiculopathy, unspecified cervical region (principal); M48.02 Spinal stenosis, cervical region; Z91.018 Allergy to other foods
CPT/HCPCS: 62321; J2250; J1100; J3010; Q9966; 99152

== ENCOUNTER → 2018-07-06 | Outpatient (CLI) | payer MEDICARE, OTHER ==
[2018-07-06 12:18] VITALS: BP 163/89; PULSE 80; RESP 16
--- NOTE | 2018-07-06 12:54 | P.PAINPG ---
Subjective Progress Note Date: 07/06/18 Principal diagnosis: Herniated nucleus pulposus This very pleasant 38-year-old woman with a history of neck pain as well as low back pain. She recently underwent a cervical neural steroid injection reports this was very helpful reducing her symptoms. She now complete pain in her back which radiates into her legs. She does have a herniated disc at L4 5 on her MRI. She denies bowel or bladder dysfunction. Objective - Vital Signs Vital signs: Vital Signs Temp Pulse 80 07/06/18 12:08 Resp 16 07/06/18 12:08 BP 163/89 07/06/18 12:08 Pulse Ox 99 07/06/18 12:08 Intake & Output 07/05/18 07/06/18 07/06/18 18:59 06:59 18:59 Weight 104.326 kg - Exam General: The patient is alert and oriented. Patient is not sedated Patient answers all question appropriately. Cardiac: Heart is regular in rate and rhythm Respiratory: Clear to auscultation. No audible wheezes. Abdomen: Soft nontender nondistended. Musculoskeletal: Strength is normal bilaterally. Sensation is normal bilaterally. Straight leg raise is negative bilaterally. Neurological: Reflexes are preserved and symmetric bilaterally. Assessment and Plan (1) Herniated nucleus pulposus of lumbosacral region Narrative/Plan: Plan of Care 1. Medications: Patient will continue with medications as prescribed by her primary care physician 2. Interventions: We will schedule the patient for lumbar epidural steroid injection L4 5. She has had this in the past and it was very helpful for her. 3. Referrals: None 4. Testing: None 5. Follow-up: Lumbar epidural steroid injection L4 5 Current Visit: Yes Status: Acute Code(s): M51.27 - OTHER INTERVERTEBRAL DISC DISPLACEMENT, LUMBOSACRAL REGION SNOMED Code(s): 99450713 PQRS Measure Charge Sheet Measure #130: Documentation of Current Meds in Medical Chart: Patient not eligible for medications to be documented Measure #226: Tobacco Use: Screen & Cessation Intervention: Pt not a tobacco user Measure #111: Pneumonia Vaccination: Pneumococcal vaccine NOT administered or previously given Measure #47: Advance Care Plan: Advance care planning discussed & documented, pt chose/unable to give Measure #412: Opioid Treatment Agreement: No documentation of signed opioid treatment agreement Measure #408: Opioid Therapy Follow-up Evaluation: Patient had NO f/u eval minimum every 3 months during opioid therapy Measure #317: Preventitive Care & Scrn High Bld Press & F/U: Normal blood pressure, f/u not required Measure #128: Body Mass Index (BMI) Screening & Follow-up: BMI documented ABOVE normal parameters - f/u documented Measure #131: Pain Assessment & Follow-up: Pain positive & plan documented Measure #431: Unhealthy Alcohol Use Preventative Care & Scrn: Patient not identified as an unhealthy alcohol user PQRS Narrative: Smoking Status Current every day smoker Do You Want the Pneumonia No Vaccine AT THIS TIME? Blood Pressure 163/89 Pain Intensity [Bilateral 7 Lower Back] Pain Intensity [Bilateral 2 Posterior Neck] Scale Used Numeric (1 - 10) Hx Alcohol Use (MH) No Home Medications: Ambulatory Orders Ibuprofen [Motrin] 800 mg PO BID PRN 11/30/13 buPROPion XL [Wellbutrin XL] 300 mg PO DAILY 06/12/15 ALPRAZolam [Xanax] 0.25 mg PO TID PRN 02/15/17 Docusate [Colace] 100 mg PO BID 02/15/17 Hydrocodone/Acetaminophen [[place] 5-325] 1 tab PO DAILY PRN 02/15/17 Oxybutynin Chloride 5 mg PO BID 02/15/17 lamoTRIgine [LaMICtal] 100 mg PO HS 02/15/17 lamoTRIgine [LaMICtal] 200 mg PO DAILY 02/15/17 Controlled Substance Measures - Controlled Substance Measures Is patient prescribed a controlled substance at discharge?: No
== END | disposition home or self-care (01) ==
LOC: PNWHC3 11:32
PROVIDERS: ATTEND Pain Medicine Pain Medicine
DX: M51.27 Other intervertebral disc displacement, lumbosacral region (principal); F17.200 Nicotine dependence, unspecified, uncomplicated; Z79.899 Other long term (current) drug therapy
CPT/HCPCS: 99211

== ENCOUNTER 2018-07-12 08:12 | Day surgery (SDC) | payer MEDICARE ==
[2018-07-07 11:39] VITALS: BMI 38.6
[2018-07-12 08:57] VITALS: TEMP 97.9
[2018-07-12] MEDS ORDERED: LIDOCAINE 1% 20 ML VIAL (10MG/ML) FOR IV START INTRADERMA ONE (09:08)
[2018-07-12] MEDS ORDERED: LACTATED RINGERS 1,000 ML IV ONE (09:08)
--- NOTE | 2018-07-12 09:52 | P.PCN ---
Date of Procedure: 07/12/18 Procedure(s) Performed: PREOPERATIVE DIAGNOSIS: 1- Lumbar herniated Disc Diseases 2-Lumbar spondylosis with Facet arthropathy without myelopathy POSTOPERATIVE DIAGNOSIS: 1-Lumber herniated Disc Diseases 2-Lumbar spondylosis with Facet arthropathy without myelopathy PROCEDURE 1. Lumbar epidural steroid injection under fluoroscopic guidance at the L4-5 level. 2. Lumbar epidurogram. ANESTHESIA: Local with 1% lidocaine 3 ml and , moderate sedation with intravenous Versed 2 mg ,and fentanyle 50 Mcg EBL: Minimal PROCEDURE INDICATION: The patient with low back pain and radiculitis symptoms unresponsive to conservative treatment. Fluoroscopy was used to optimize visualization of the needle placement and to maximize safety. PROCEDURE DESCRIPTION / TECHNIQUE: The patient was seen and identified in the preoperative area. Risks, benefits , complications including but not limited to infections ,bleeding ,allergic reaction to the medications ,nerve damage and not complete pain releife , and alternatives were discussed with the patient. The patient agreed to proceed with the procedure and signed the consent. IV was started, and vital signs were stable. Patient was taken to the OR and time out was completed. The patient was placed in the prone position on procedure table and a pillow was placed under the abdomen to reduce lumbar lordosis. The lumbosacral area was prepped and draped in the usual sterile fashion.ere closely monitored during the procedure. Conscious sedation was used during the procedure to decrease patients anxiety. Vital signs was monitered during the entire procedure. Using anterior-posterior fluoroscopy, the L5-S1 interlaminar space was identified and the skin over this site was marked and then infiltrated with 1% lidocaine subcutaneously. Subsequently, a 20-gauge Tuohy epidural needle was inserted and advanced toward the epidural space using the ``Loss of resistance technique and guided by AP and lateral fluoroscopy. The correct needle position in the epidural space was verified with the injection of 2 mL of the water soluble contrast dye Isovue 200 contrast and observing an excellent epidurogram with the epidural spread of the dye, after negative aspiration for blood and CSF and in the absence of paresthesias. Again after negative aspiration, a 6 ml mixture containing 80 mg of Depo-medrol , and 2 ml of preservative free Normal Saline, and 2 ml of preservative free lidocaine 1% solution was injected and a washout of epidurogram was seen. Needle was withdrawn intact, skin was cleansed, and bandages were applied. COMPLICATIONS: None DISPOSITION / PLANS: The patient was placed in a supine position and transferred to the recovery area in a stable condition for observation. There was no evidence of lower extremity motor or sensory deficit after the procedure. Patient was discharged from the recovery room after meeting discharge criteria. Home discharge instructions were given to the patient by the staff. The patient was reexamined prior to discharge. The patient will schedule a follow up in the clinic in 2-4 weeks.
[2018-07-12] MEDS ORDERED: IV FLUID CONTINUATION 600 ML IV ONE (09:59)
[2018-07-12 10:10] VITALS: BP 135/81; PULSE 65; RESP 18
--- NOTE | 2018-07-12 12:43 | FL ---
EXAMINATION TYPE: FL guided pain mgmt statistic DATE OF EXAM: 07/12/2018 HISTORY: Flouroscopy time 3 seconds of fluoroscopy provided. IMPRESSION: 1. Fluoroscopy time.
== END 2018-07-12 10:23 | disposition home or self-care (01) ==
LOC: ORPAIN 08:12
PROVIDERS: ATTEND Specialist
DX: M51.26 Other intervertebral disc displacement, lumbar region (principal); M47.816 Spondylosis without myelopathy or radiculopathy, lumbar region
CPT/HCPCS: 62323; J2250; J1030; J3010; Q9966; 99152

== ENCOUNTER → 2018-09-01 | Outpatient (CLI) | payer MEDICARE, OTHER ==
[2018-09-01 12:09] VITALS: BP 145/100; PULSE 73; RESP 16; TEMP 98.1
--- NOTE | 2018-09-01 12:31 | P.PN ---
Subjective Progress Note Date: 09/01/18 This is follow-up visit for this patient with a history of severe and chronic low back pain secondary to lumbar degenerative disc disease ,lumbar spondylosis , Previously we have done lumbar epidural steroid injections x3 and she reported that she get 2-3 weeks of pain relief after each epidural steroid injections We have done cervical epidural steroid injection previously she had good pain relief of her neck pain The patient currently on Motrin 800 mg 3 times a day and [place] 5/325 every 6 hours Patient denies any side effect of the medication , patient denies any excessive drowsiness or sleepiness, patient denies any suicidal ideation, Patient reported that the current medication is helping to control the pain and improve the activity of daily livings, Patient denies any motor or sensory deficit, denies any change in the bowel movement or urination, patient denies any fever or night sweats. Physical Examinations : 1-Constitutiona : Cooperative , not in acute distress . 2-HEENT : nech ; supple , no Lymphadenopathy , normal thyroid size . eyes : no ptosis , no icterus , no photophobia . 7- neurologic : Cranial nerve II to XII intact , no focal neurological deffecit . 8-psychatric : alert , oriented X 3 , appropriate affect , intact judgment and insight . 9-Lymphatic : no Lymphadenopathy . 10- musculoskeltal : Cervical Spine motor stregnth in the deltoid and biceps, normal right side , normal Left side motor stregnth biceps and the wrist extensors normal right side ,normal left side . motor stregnth in the triceps muscle . normal Right side , normal Left side deep tendon reflexes normal at the biceps , normal at Brachioradialis , normal at triceps. positive cervical facet loading test . Lumber spine moter stegnth lower extremities ,thigh and legs 5/5 Right side , 5/5 Left side deep tendon reflexes : normal Knee Jerk , normal ankle Jerk positive lumber facet Loading Test Range of motion of the lumbar spine Flexion 30 degrees, extension 10 degrees strait leg raising test negative bilaterally Fabere test negative bilaterally. Tenderness over the sacroiliac joints bilaterally Assessment and plan= 1-lumbar degenerative disc disease , 2-lumbar spondylosis. 3-cervical radiculopathy 4-cervical degenerative disc disease 5-cervical foraminal stenosis Patient had short-term benefit after lumbar epidural steroid injections done on multiple different occasions, after each injection she get 2-3 weeks of pain relief currently she is complaining of pain clinically mostly secondary to facetogenic component, for this reason she will be good candidate to have diagnostic medial branch block lumbar area at C4 L4-5/L5-S1 , we will do it twice and if she had a good result then we will proceed with the radiofrequency ablation of the medial branch and lumbar area PQRS Measure Charge Sheet Measure #130: Documentation of Current Meds in Medical Chart: Patient's medications documented in chart Measure #226: Tobacco Use: Screen & Cessation Intervention: Pt screened for tobacco use AND intervention given Measure #111: Pneumonia Vaccination: Pneumococcal vaccine NOT administered or previously given Measure #47: Advance Care Plan: Advance care planning discussed & documented, pt chose/unable to give Measure #412: Opioid Treatment Agreement: No documentation of signed opioid treatment agreement Measure #408: Opioid Therapy Follow-up Evaluation: Patient had NO f/u eval minimum every 3 months during opioid therapy Measure #317: Preventitive Care & Scrn High Bld Press & F/U: Blood pressure elevated she will follow with the primary Measure #128: Body Mass Index (BMI) Screening & Follow-up: BMI documented ABOVE normal parameters - f/u documented Measure #131: Pain Assessment & Follow-up: Pain positive & plan documented, Follow-up scheduled Measure #431: Unhealthy Alcohol Use Preventative Care & Scrn: Patient not identified as an unhealthy alcohol user PQRS Narrative: - Controlled Substance Measures Is patient prescribed a controlled substance at discharge?: No When asked, does pt state using other controlled substances?: No If prescribed controlled substance>3 days was MAPS reviewed?: No If Rx opioid, was Start Talking consent form obtained?: No If opioid is for acute pain is fill amount 7 days or less?: No Was information provided regarding opioid addiction?: No Objective - Vital Signs Vital signs: Vital Signs Temp 98.1 F 09/01/18 11:56 Pulse 73 09/01/18 11:56 Resp 16 09/01/18 11:56 BP 145/100 09/01/18 11:56 Pulse Ox Intake & Output 08/31/18 09/01/18 09/01/18 18:59 06:59 18:59 Weight 102.058 kg
== END ==
LOC: PNWHC3 11:33
PROVIDERS: ATTEND Specialist
DX: M99.71 Connective tissue and disc stenosis of intervertebral foramina of cervical region (principal); M50.10 Cervical disc disorder with radiculopathy, unspecified cervical region; M51.16 Intervertebral disc disorders with radiculopathy, lumbar region; M47.26 Other spondylosis with radiculopathy, lumbar region; Z79.891 Long term (current) use of opiate analgesic
CPT/HCPCS: 99211

== ENCOUNTER → 2018-09-12 | Day surgery (SDC) | payer MEDICARE, OTHER ==
[2018-09-08 17:15] VITALS: BMI 40.3
[2018-09-12 06:54] VITALS: PULSE 68; RESP 16; TEMP 97.5
[2018-09-12 07:31] VITALS: BP 126/74
--- NOTE | 2018-09-12 07:41 | P.PCN ---
Date of Procedure: 09/12/18 Anesthesia: none Description of Procedure: Surgeon: Shanna Hennessy MD. Procedure: Bilateral lumbar Medial Branch Block at , L4/5, and L5/S1 Anesthesia: None The patient was seen and examined in the PO. Procedure risks and benefits were fully reviewed with the patient. The patient understands this is a diagnostic if local only is used, as will be the case today. The goal of the procedure is to inject medication into the medial branch or small nerves that go into the facet joints. In this way, we can hopefully identify which of these joints, if any, may be contributing to their pain. Informed consent for procedure was obtained. The patient was taken into the office fluoroscopy procedure room and placed prone on the table. A pillow was placed under the abdomen to reduce lumbar lordosis. Vital signs were closely monitored during the procedure. The skin over the area was prepped with Betadine X 3 and draped in usual sterile manner. Sterile technique was observed throughout procedure. Under biplanar fluoroscopic guidance, the target injection area of the , L4, L5 and sacral ala bilateral were targeted. A 25 gauge 31/2 inch spinal needle was then placed at the most medial and superior aspect of the transverse process near the "eye of the Forrest dog". Aspiration for blood was negative. 1 cc of 0.5% marcaine was injected into the targeted areas separately. [place] were withdrawn intact. No complications were noted during the procedure. The patient tolerated the procedure well. The patient was placed in supine position and transferred to the recovery area for observation and remained stable until discharged home. Home discharge instructions were given to the patient by the staff. The patient will schedule a follow up as directed.
--- NOTE | 2018-09-12 08:30 | FL ---
EXAMINATION TYPE: FL guided pain mgmt statistic DATE OF EXAM: 09/12/2018 HISTORY: Flouroscopy time 11 seconds of fluoroscopy provided. IMPRESSION: 1. Fluoroscopy time.
== END ==
LOC: ORPAIN 06:08
PROVIDERS: ATTEND Hospitalist
DX: G89.29 Other chronic pain (principal); M51.36 Other intervertebral disc degeneration, lumbar region; M47.816 Spondylosis without myelopathy or radiculopathy, lumbar region; M50.10 Cervical disc disorder with radiculopathy, unspecified cervical region; M48.02 Spinal stenosis, cervical region; Z79.1 Long term (current) use of non-steroidal anti-inflammatories (NSAID); Z79.891 Long term (current) use of opiate analgesic

== ENCOUNTER 2018-09-26 08:18 | Day surgery (SDC) | payer MEDICARE, OTHER ==
[2018-09-21 09:15] VITALS: BMI 40.3
[2018-09-26 09:04] VITALS: RESP 16; TEMP 98.2
[2018-09-26] MEDS ORDERED: LACTATED RINGERS 1,000 ML IV ONE (09:12)
[2018-09-26] MEDS ORDERED: LIDOCAINE 1% 20 ML VIAL (10MG/ML) FOR IV START INTRADERMA ONE (09:13)
--- NOTE | 2018-09-26 10:04 | P.PCN ---
Date of Procedure: 09/26/18 Procedure(s) Performed: PREOPERATIVE DIAGNOSIS : 1- Lumbar spondylosis with Facet Arthropathy without myelopathy . 2- Lumber degenerative disc disease POSTOPERATIVE DIAGNOSIS: 1- Lumbar spondylosis with Facet Arthropathy without myelopathy . 2- Lumber degenerative disc disease PROCEDURE: Diagnostic bilateral L3 -4 , L4 -5 , and L5-S1 medial branch block under fluoroscopy ANESTHESIA: moderate sedation with intravenous Versed 2 mg and Fentanyl 50 mcg. EBL: Minimal COMPLICATION: None. IV FLUIDS: 100 mL of normal saline. PROCEDURE INDICATION: Chronic low back pain secondary to Facet arthropathy unresponsive to conservative treatment. PROCEDURE DESCRIPTION: the patient was seen and identified in the preop holding area , risks and benefits and possible complications of the procedure and alternative were discussed with the patient, and the patient agreed to proceed with the procedure and signed the consent IV was started and vital signs monitored during the procedure and fluoroscopy was used to maximize the benefit and accuracy of the needle placement, and sedation was given to decrease patient anxiety, patient was taken to the procedure room and placed in prone position vital signs monitored in the back prepped with chlorhexidine X3 then under strict sterile technique using a right oblique fluoroscopy ,the junction of the transverse process and the superior articulating process of the right L3- 4 , L4- 5, and L5-S1 vertebra which corresponding to the fluoroscopy image of the eye of the Forrest dog on the block side for the medial branches and subsequently , after local infiltration of skin and subcu tissuies with Ropivacaine 0.5 % , one mL at each level , then 25-gauge Quincke-type needles , 3 needle was used , each one of them placed at the junction of the base of the transverse process and the superior articular process at the appropriate level, and the needle was advanced until the periosteum contacted, needle placement confirmed with AP oblique and lateral view and after appropriate needle placement confirmed, and after negative aspiration for heme and CSF and there was no paresthesia 1-1/2 mL of Ropivacaine 0.5% mixed with 20 mg Kenalog , then half mL injected at each level after negative aspiration the needle subsequently removed and the same procedure repeated for the left side at left side at L3-4, L4- 5 and L5-S1 levels. At the end of the procedure and the needles removed and a bandage applied after the skin was cleaned the cleaning solution patient taken to recovery room in stable condition and monitors in the recovery room for 20-30 minutes and discharged home in stable condition after discharge criteria met and patient will follow up with the pain clinic in 2-4 weeks note = recommend to use 5 inch needles next time.
[2018-09-26] MEDS ORDERED: IV FLUID CONTINUATION 1,000 ML IV ONE (10:05)
--- NOTE | 2018-09-26 10:13 | FL ---
EXAMINATION TYPE: FL guided pain mgmt statistic DATE OF EXAM: 09/26/2018 HISTORY: Flouroscopy time 12 seconds of fluoroscopy provided. IMPRESSION: 1. Fluoroscopy time.
[2018-09-26 10:31] VITALS: BP 131/82; PULSE 72
== END 2018-09-26 10:42 | disposition home or self-care (01) ==
LOC: ORPAIN 08:18
PROVIDERS: ATTEND Specialist
DX: G89.29 Other chronic pain (principal); M47.816 Spondylosis without myelopathy or radiculopathy, lumbar region; M51.36 Other intervertebral disc degeneration, lumbar region; M50.10 Cervical disc disorder with radiculopathy, unspecified cervical region; M48.02 Spinal stenosis, cervical region; Z79.1 Long term (current) use of non-steroidal anti-inflammatories (NSAID); Z79.891 Long term (current) use of opiate analgesic
CPT/HCPCS: 64493; 64494; 64495; J2250; J1030; J3010; 99152

== ENCOUNTER → 2018-10-06 | Outpatient (CLI) | payer MEDICARE, OTHER ==
[2018-10-06 13:19] VITALS: BP 137/98; PULSE 72; RESP 16; TEMP 98.2
--- NOTE | 2018-10-06 13:35 | P.PN ---
Subjective Progress Note Date: 10/06/18 This is a 38-year-old morbidly obese female with history of chronic lower back pain which responded favorably to a diagnostic lumbar medial branch block with more than 50% of pain relief. Today, pt denies new-onset weakness, bowel/bladder incontinence, or any other s igns or symptoms of cauda equina syndrome. There are no signs of acute intoxication, and no indications of medication diversion or overuse. In addition to above, 13-point review of systems is also negative for chest pain, shortness of breath, changes in vision, changes in hearing, new onset weakness, abdominal pain, diarrhea, extreme fatigue, malaise, fever, skin changes, homicidal or suicidal ideation, or bowel or bladder incontinence. Vital Signs: Reviewed in EMR Gen: AAOx3, NAD HEENT: PERRLA,hearing grossly normal Pulm: resp unlabored,CTA Heart:S1,S2, No Mur Neck: supple, trachea midline Neuro exam of the lower extremities: Within normal limits Tenderness in the paravertebral musculature: Positive on the lumbar paravertebral musculature Neuro: CN II-XII grossly intact, Imaging: Reviewed in EMR/chart Assessment: Lumbar spondylosis without myelopathy Morbid obesity Plan: 1. Explanation: Opioid and psychological risk scores were reviewed. Diagnoses, prognoses, and multiple treatment options including but not limited to physical therapy, interventional therapies, adjuvant medical therapies, narcotic medication therapies, and surgery were discussed with the patient and all questions were answered to the patient's satisfaction. 2. Opioid agreement: We do not prescribe opioids for this patient. 3. Counseling: The patient was counseled extensively on SMOKING CESSATION, BODY MASS INDEX, EXERCISE. Specifically, the patient was instructed regarding the importance of smoking cessation, obesity, and exercise in the context of both chronic pain and overall health. 4. Procedures: Scheduled for left lumbar medial branch RFA for levels L3 4, L4- L5, and L5-S1 under fluoroscopic guidance 5. Consultations: None 6. Investigations: None 7. Medications: None 8. Disposition: Return to above-mentioned procedure Objective - Vital Signs Vital signs: Vital Signs Temp 98.2 F 10/06/18 13:15 Pulse 72 10/06/18 13:15 Resp 16 10/06/18 13:15 BP 137/98 10/06/18 13:15 Pulse Ox 99 10/06/18 13:15 Intake & Output 10/05/18 10/06/18 10/06/18 18:59 06:59 18:59 Weight 106.594 kg
== END ==
LOC: PNWHC3 12:45
PROVIDERS: ATTEND Anesthesiology
DX: G89.29 Other chronic pain (principal); M47.816 Spondylosis without myelopathy or radiculopathy, lumbar region; E66.01 Morbid (severe) obesity due to excess calories; Z68.41 Body mass index [BMI] 40.0-44.9, adult
CPT/HCPCS: 99211

== ENCOUNTER → 2018-11-21 | Outpatient (CLI) | payer MEDICARE, OTHER ==
[2018-11-21 13:08] VITALS: BP 132/82; PULSE 84; RESP 18
--- NOTE | 2018-11-21 13:28 | P.PN ---
Subjective Progress Note Date: 11/21/18 This is a 38-year-old lady with history of chronic lower back pain which responded very well to lumbar medial branch RFA on the left side. Today she complains of midthoracic back pain. This pain does not wake her up at night. It gets worse with twisting of the torso. The patient uses [place] sparingly for her pain and she gets prescription for it from her primary care physician. Today, pt denies new-onset weakness, bowel/bladder incontinence, or any other signs or symptoms of cauda equina syndrome. There are no signs of acute intoxication, and no indications of medication diversion or overuse. In addition to above, 13-point review of systems is also negative for chest pain, shortness of breath, changes in vision, changes in hearing, new onset weakness, abdominal pain, diarrhea, extreme fatigue, malaise, fever, skin changes, homicidal or suicidal ideation, or bowel or bladder incontinence. Vital Signs: Reviewed in EMR Gen: AAOx3, NAD HEENT: PERRLA,hearing grossly normal Pulm: resp unlabored,CTA Heart:S1,S2, No Mur Neck: supple, trachea midline Neuro exam of the lower extremities: Within normal limits Tenderness in the paravertebral musculature: Positive tenderness in the thoracic paravertebral musculature bilaterally starting from the level of the lower anle of the shoulder blade up to the trapezius muscles. Neuro: CN II-XII grossly intact, Imaging: Reviewed in EMR/chart Assessment: Lumbar spondylosis without myelopathy Thoracic paravertebral myofascial pain Morbid obesity Plan: 1. Explanation: Opioid and psychological risk scores were reviewed. Diagnoses, prognoses, and multiple treatment options including but not limited to physical therapy, interventional therapies, adjuvant medical therapies, narcotic medication therapies, and surgery were discussed with the patient and all questions were answered to the patient's satisfaction. 2. Opioid agreement: The patient does not receive opioids from our clinic 3. Counseling: The patient was counseled extensively on SMOKING CESSATION, BODY MASS INDEX, EXERCISE. Specifically, the patient was instructed regarding the importance of smoking cessation, obesity, and exercise in the context of both chronic pain and overall health. 4. Procedures: Schedule for trigger point injection on the thoracic paravertebral musculature bilaterally. 5. Consultations: None 6. Investigations: None 7. Medications: None 8. Disposition: Return to clinic as needed and to the above-mentioned procedure as soon as possible 9. Maps were reviewed and were appropriate. PQRS measures: 1-Patient's medications are documented in the chart. 2-Tobacco use is positive, counseling given 3-Patient has not had a pneumococcal vaccine. 4-Advanced care planning discussed, patient unable to give 5-Opioid contract is not signed with the patient. 6-Pain positive, follow-up visit or procedure scheduled 7-Patient's blood pressure measured and documented above/ normal limits. The patient will follow up with his primary care physician. 8-Patient's weight was measured, and body mass index ABOVE the normal limits, and counseling was done. Patient instructed to follow up with PCP. 9-Patient WAS NOT identified as an unhealthy alcohol user. Objective - Vital Signs Vital signs: Vital Signs Temp Pulse 84 11/21/18 12:58 Resp 18 11/21/18 12:58 BP 132/82 11/21/18 12:58 Pulse Ox 84 L 11/21/18 12:58 Intake & Output 11/20/18 11/21/18 11/21/18 18:59 06:59 18:59 Weight 106.594 kg
== END | disposition home or self-care (01) ==
LOC: PNWHC3 12:42
PROVIDERS: ATTEND Anesthesiology
DX: G89.29 Other chronic pain (principal); M47.816 Spondylosis without myelopathy or radiculopathy, lumbar region; M79.18 Myalgia, other site; E66.01 Morbid (severe) obesity due to excess calories; Z98.890 Other specified postprocedural states; Z68.41 Body mass index [BMI] 40.0-44.9, adult
CPT/HCPCS: 99211

== ENCOUNTER 2018-12-01 06:01 | Day surgery (SDC) | payer MEDICARE, OTHER ==
[2018-11-29 12:52] VITALS: BMI 40.3
[~2018-12-01 06:01] MED LIST changes: +LACTATED RINGERS 1,000 ML IV SCH; -SODIUM CHLORIDE 0.9% 500 ML 500 ML IV SCH
[2018-12-01 06:26] VITALS: TEMP 97.8
[2018-12-01] MEDS ORDERED: LIDOCAINE 1% 20 ML VIAL (10MG/ML) FOR IV START INTRADERMA ONE (06:33)
--- NOTE | 2018-12-01 07:18 | P.PCN ---
Date of Procedure: 12/01/18 Procedure(s) Performed: Procedure= trigger point injections upper thoracic paravertebral muscles, 3 on the right side upper thoracic paravertebral muscles, and 3 on the left side thoracic paravertebral muscles Preoperative diagnosis= 1-myofascial pain syndromes thoracic area 2 - lumbar spondylosis with facet arthropathy Postoperative diagnosis= then as preoperative diagnoses Complication = none Condition= stable Anesthesia= moderate sedation with intravenous Versed 2 mg , and fentanyl 50 micrograms . Indication for the procedure= patient complaining of upper back pain , examination was positive for severe tenderness over the thoracic paravertebral muscles bilaterally and patient diagnosed with myofascial pain syndrome upper thoracic area , for this reason she was good candidate for trigger point injection Description of the procedure= procedure risk and benefits discussed with the patient, including but not limited, risk of infection and bleeding, and ALLERGIC reaction to the medication and not complete pain relief and patient agreed with the preceding patient taken to the operating room, placed in sitting position or standard monitors applied to the patient then after induction of anesthesia back prepped with chlorhexidine 3 times , and each of the trigger point was injected with ropivacaine 0.5% 3 mL injected at each trigger point, using 25- gauge needle, injection then after negative aspiration, 3 trigger points injected in the upper thoracic paravertebral muscles on the right side, from T3 levels to T7 3 trigger point identified on the right side, and another series trigger points identified on the left side upper thoracic paravertebral muscles from T3 to T7 area, total of 18 ML of ropivacaine 0,5 % mixed with 40 mg of Depo-Medrol, 3 mL injected , at every trigger point, injection then after negative aspiration and there was no paresthesia during the injection, patient tolerated the procedure well without any complications
[2018-12-01 07:32] VITALS: BP 124/84; PULSE 76; RESP 16
== END 2018-12-01 07:44 | disposition home or self-care (01) ==
LOC: ORPAIN 06:01
PROVIDERS: ATTEND Specialist
DX: M79.18 Myalgia, other site (principal); M47.9 Spondylosis, unspecified; Z88.0 Allergy status to penicillin; Z91.018 Allergy to other foods
CPT/HCPCS: 20553; J2250; J1030; J3010

== ENCOUNTER → 2022-06-16 | Outpatient (CLI) | payer MEDICARE, OTHER ==
--- NOTE | 2022-06-16 08:16 | MR ---
EXAMINATION TYPE: MR lumbar spine wo con DATE OF EXAM: 06/16/2022 6:34 AM COMPARISON: MR 06/28/2017, CT 06/06/2014.. CLINICAL INDICATION:Female, 42 years old with history of M54.16 radiculopathy lumbar; TECHNIQUE: Multi planar, multi sequence imaging was performed utilizing: T1-weighted, T2-weighted, a nd turbo inversion recovery imaging of the lumbar spine. IV Contrast: None. FINDINGS: Alignment: The lumbar vertebral bodies have preserved heights and alignment. Cord: The conus medullaris and the distal spinal cord appear unremarkable with regards to their signa l intensity and morphology. Bones/Discs: No evidence of bony edema on inversion recovery sequences. Multilevel degenerative disc disease is noted and most pronounced at the in the lower lumbar spine. Multilevel disc desiccation is present. L1-L2: No evidence of significant spinal canal stenosis or neural foraminal stenosis. L2-L3: No evidence of significant spinal canal stenosis or neural foraminal stenosis. L3-L4: No evidence of significant spinal canal stenosis or neural foraminal stenosis. L4-L5: No evidence of significant spinal canal stenosis or neural foraminal stenosis. L5-S1: No evidence of significant spinal canal stenosis or neural foraminal stenosis. Other findings: Small 14 mm lipoma in the posterior back subcutaneous tissues. IMPRESSION: 1. No definitive evidence of disc herniation or significant spinal canal or neural foraminal stenosi s. 2. Mild Multilevel disc degeneration with associated osteoarthritic changes.
== END | disposition home or self-care (01) ==
LOC: RADMRIMAIN 05:58
PROVIDERS: ATTEND Physician Assistant Medical
DX: M51.16 Intervertebral disc disorders with radiculopathy, lumbar region (principal); M47.26 Other spondylosis with radiculopathy, lumbar region; M54.50 Low back pain, unspecified
CPT/HCPCS: 72148

== ENCOUNTER → 2022-07-08 | Outpatient (CLI) | payer MEDICARE, OTHER ==
[2022-07-08 09:28] VITALS: BP 130/87; PULSE 74; RESP 18; TEMP 98.1
--- NOTE | 2022-07-08 14:49 | P.PAINPG ---
PQRS Measure Charge Sheet Comment: HISTORY OF PRESENT ILLNESS: 42 yr old as a referral from [facility] presents today w severe and chronic neck and LBP that has underwent ABIOLA C7-T1 and L4-L5 as well as BL RFA L3-L5 and Lumbar TPIs secondary to DDD, spondylosis and facet arthropathy without myelopathy for evaluation. Pt underwent a BL RFA L3-L5 in 2018 and experienced 98% pain relief x 2 yrs s/p procedure. Pt states pain level is at 7 /10 in intensity, constant, localized in the lower lumbar spine, sore/ throbbing in character w shooting pain towards the BLEs. Pain is provoked by standing for periods of 20 min or more. Pain is alleviated by medications (ibuprofen, Robaxin), injections in the past, heat, PT with traction which provoked pain, reclining, repositioning and rest. PMH: GERD, Migraines, OA, Anxiety/ PTSD/ Bipolar Disorder PSH: Appendectomy, Hysterectomy, Tubal Ligation, Pelvic Laparoscopy, Pilonidal Cystectomy SH: Daily tobacco use since age 10, Rare ETOH use, No illicit drug use FH: MGM- Lung CA. All: See list Meds: See list REVIEW OF ORGAN SYSTEMS: CONSTITUTIONAL: No fevers or chills. No recent weight loss. NEUROLOGICAL: + numbness and tingling along the distal extremities. No seizure disorders or headaches. MUSCULOSKELETAL: + pain PSYCHIATRIC: Denies current depression or suicidal thoughts. Physical Examinations : Constitutional : Cooperative , not in acute distress . Neurologic : Cranial nerve II to XII intact. No focal neurological deficits. Psychiatric : alert & oriented x 3. Matching mood & appropriate affect. Judgment & insight intact. Musculoskeletal : Cervical Spine Motor strength in the deltoid and biceps: Normal right side. Normal Left side Motor strength biceps and the wrist extensors: Normal right side . Normal left side Motor strength in the triceps muscle: Normal right side. Normal left side Deep tendon reflexes: Normal at the biceps. Normal at Brachioradialis. Normal at triceps Vertebral body tenderness to deep palpation over Cervical facet loading test: positive bilaterally Spurling test: positive bilaterally Neck distraction test: positive bilaterally Zenobia sign: positive bilaterally Lumbar spine Motor strength lower extremities ,thigh and legs 5/5 Right side , 5/5 Left side Deep tendon reflexes : Normal Knee Jerk. Normal Ankle Jerk Vertebral body tenderness over Lumbar facet Loading Test: positive Right / positive Left TTP over BL L4-L5, L5-S1 facets Range of motion of the lumbar spine Flexion 30 degrees, extension 10 degrees Straight Leg Raise test: Left/ Right positive at degree Douglas test: positive right / positive left. Severe tenderness over the Sacroiliac joint on the Right / Left sides Gaenslen test: positive bilaterally Seated flexion test: positive bilaterally. Sacral spine : Severe tenderness over the Sacroiliac joint: right side / left side Range of motion: Flexion of the lumbar spine <60 degrees Range of motion: Extension of the lumbar spine <20 degrees Gaenslen's Test positive Fransisco's Test positive Douglas test: positive right side / left side Thigh Thrust Test Sacral Thrust Test Imaging: MRI without contrast of the lumbar spine from 06/16/22 reviewed Assessment/ Plan : Lumbar DDD Script for PT integrated w massage re: M51.36. May return to the clinic in 4 wks for a re evaluation. All questions answered. I have spent greater than 30 minutes on patient care today. Dr Ulloa was available by phone for the evaluation of this patient. The time was used to review the medical records including relevant urine studies and Prescription history (MAPs), review of the available imaging, evaluation and examination of the patient, coordination of care with the medical staff and if applicable referring physicians, as well as creation of the medical record PQRS Narrative: Smoking Status Current every day smoker Hx Alcohol Use (MH) No Home Medications: Ambulatory Orders Ibuprofen [Motrin] 800 mg PO BID PRN 11/30/13 buPROPion XL [Wellbutrin XL] 300 mg PO DAILY 06/12/15 ALPRAZolam [Xanax] 0.25 mg PO TID PRN 02/15/17 Docusate [Colace] 100 mg PO BID 02/15/17 Hydrocodone/Acetaminophen [[place] 5-325] 1 tab PO DAILY PRN 02/15/17 Oxybutynin Chloride 5 mg PO BID 02/15/17 lamoTRIgine [LaMICtal] 100 mg PO HS 02/15/17 lamoTRIgine [LaMICtal] 200 mg PO DAILY 02/15/17 Controlled Substance Measures - Controlled Substance Measures Is patient prescribed a controlled substance at discharge?: No
== END ==
LOC: PNWHC3 08:45
PROVIDERS: ATTEND Specialist
DX: M51.36 Other intervertebral disc degeneration, lumbar region (principal); Z88.0 Allergy status to penicillin; Z91.018 Allergy to other foods; F17.200 Nicotine dependence, unspecified, uncomplicated
CPT/HCPCS: 99211

== ENCOUNTER → 2022-10-30 | Day surgery (SDC) | payer MEDICARE, OTHER ==
[2022-10-28 15:21] VITALS: BMI 41.8
[~2022-10-30] MED LIST changes: +IV FLUID CONTINUATION 1,000 ML IV ONE; +LACTATED RINGERS 1,000 ML IV ONE; +LIDOCAINE 1% (10MG/ML) FOR IV START INTRADERMA PRN; +MIDAZOLAM 2 MG/2 ML VIAL ONE; +ROPIVACAINE 5 MG/ML 20 ML AMPULE ONE; +fentaNYL (PF) 50 MCG/ML 2 ML AMP ONE; +methylPREDNISolone ACETATE 40 MG/ML 1 ML VIAL ONE
[2022-10-30 06:52] VITALS: TEMP 97.5
--- NOTE | 2022-10-30 07:34 | P.PCN ---
Date of Procedure: 10/30/22 Procedure(s) Performed: PREOPERATIVE DIAGNOSIS: 1-Lumbar Spondylosis with Facet Arthropathy without myelopathy. 2- Lumber degenerative disc disease. POSTOPERATIVE DIAGNOSIS: 1- Lumbar Spondylosis with Facet Arthropathy without myelopathy. 2- Lumber degenerative disc disease. PROCEDURES : Bilateral Radiofrequency thermocoagulation, L3 , L4 , and L5 medial branch, with fluoroscopic guidance (fluoroscopy images available in the radiology department) ( to denervate the facet joint at bilateral L4-5 ,and L5-S1 levels ). ANESTHESIA: Monitored anesthesia care as per anesthesia department . EBL: Minimal PROCEDURE INDICATION: The patient with low back pain secondary to lumbar facet arthropathy who had more than 50% relief of her pain with previous diagnostic lumbar medial branch block with bupivacaine. PROCEDURE DESCRIPTION / TECHNIQUE: The patient was seen and identified in the preoperative area. Risks, benefits, complications, including but not limited to risk of infection ,bleeding , allergic reactions to the medications and no complete pain releife , and alternatives were discussed with the patient, the patient agreed to proceed with the procedure and signed the consent. IV was started. Vital signs remained stable throughout the procedure. Patient was taken to the OR and time out was completed. The patient was placed in the prone position on the procedure table. The lumber area was prepped and draped in the usual sterile fashion. . Vital signs were closely monitored during the procedure .IV sedation was used during the procedure to decrease patients anxiety. Using AP and then oblique fluoroscopy, the ``eye of the Forrest dog corresponding to the connection between the superior and transverse articular processes of right L3, L4, and L5 were identified, marked, and localized with 1% lidocaine. Subsequently, a 18 [id number] radiofrequency cannula with a 10- mm active tip was advanced guided by fluoroscopy to each of the``eyes of the Forrest dog at right L3, L4, and L5. Each site then underwent sensory testing at 50 Hz and 0 to 1 volt and motor testing at 2.5 Hz and 0 to 3 volt with local stimulation, but no radicular symptoms down the legs. Thereafter each sites underwent radiofrequency thermocoagulation at 80 degrees celsius for 90 seconds after injecting 0.5 ml of PF Ropivacaine 1ml, then after the thermocoagulation done , 1 ml of the block solution containing Depo-Medrol 20 mg and 3 ml of Ropivacaine 0.5% was injected at the right L3 , L4 , and L5 , levels after negative aspiration of CSF and blood and with no paresthesias. Cannulas were retracted while injecting lidocaine 1% until the needle is out. The same procedure was repeated at the level of Left L3, L4, and L5 levels. At the end of the procedure, the skin was cleansed and bandages were applied. COMPLICATIONS: No acute complications. DISPOSITION / PLANS: The patient was placed in a supine position and transferred to the recovery area in a stable condition for observation and was discharged from the recovery room after meeting discharge criteria. Home discharge instructions given to the patient by the staff. The patient was reexamined prior to discharge. The patient will schedule a follow up in the in in 2-4 weeks.
[2022-10-30 08:08] VITALS: BP 124/64; PULSE 81; RESP 16
--- NOTE | 2022-10-30 10:43 | FL ---
EXAMINATION TYPE: FL guided pain mgmt statistic DATE OF EXAM: 10/30/2022 HISTORY: Fluoroscopy time 47 seconds of fluoroscopy provided. dap .[id number] mGym2 IMPRESSION: 1. Fluoroscopy time.
== END ==
LOC: ORPAIN 06:08
PROVIDERS: ATTEND Specialist
DX: M51.36 Other intervertebral disc degeneration, lumbar region (principal); M47.816 Spondylosis without myelopathy or radiculopathy, lumbar region; F39 Unspecified mood [affective] disorder; K21.9 Gastro-esophageal reflux disease without esophagitis; Z88.0 Allergy status to penicillin; Z79.899 Other long term (current) drug therapy
CPT/HCPCS: 64635; 64636 ×2; J2250; J1030; J3010; J2795

== ENCOUNTER → 2022-12-14 | Outpatient (CLI) | payer MEDICARE, OTHER ==
[2022-12-14 07:56] VITALS: BP 131/85; PULSE 76; RESP 18; TEMP 98.1
--- NOTE | 2022-12-14 13:28 | P.PAINPG ---
PQRS Measure Charge Sheet Comment: A 42 yr old female with a history of severe and chronic LBP secondary to lumbar DDD and spondylosis with facet arthropathy without myelopathy presents today for evaluation s/p BL RFA L4-L5, L5-S1. Pt states she experienced 99% pain relief s/p procedure. Pain level is provoked at 7 /10 in intensity, constant, localized in the lumbar spine, shooting in character w shooting towards the RLE. Pain is provoked by being in 1 position for periods of 20 min or more. Pain is alleviated with Pt x 6 wks in Sep 2022, heat > Ice, use of a TENS unit, medications, topical, repositioning and rest. Interventional pain procedures completed include BL RFA L3-L:5 Patient is currently on Ibu, Lidoderm Patient denies any side effects of the medication(s), denies excessive drowsiness or sleepiness, denies suicidal ideation and reports that the current pain medication is helping to control the pain and improve activities of daily living. Patient denies any motor or sensory deficits. Patient denies any fever or night sweats, denies any change in the bowel movements or urination. Physical Examination: -Constitutional: Cooperative. Not in acute distress . - Neurologic: Cranial nerve II to XII intact. No focal neurological deficits. - Psychatric: Alert & oriented x 3. Matching mood & appropriate affect. Judgment and insight intact. - Musculoskeletal: Cervical spine: Muscle bulk/ tone/ strength in the bilateral upper extremities normal Vertebral body tenderness to palpation over Spurling test positive Distraction test positive Facet loading test positive TTP Thoracic spine Muscle bulk / tone/ strength in the bilateral paraspinal muscles normal Vertebral body tender to palpation over Facet loading test positive TTP Lumbar spine: Motor bulk/ tone/ strength lower extremities , thigh and legs : 5/5 Deep tendon reflexes : Normal Knee Jerk. Normal Ankle Jerk . Vertebral body tenderness to palpation over Steen Test positive Lumbar Facet Loading Test positive TTP over BL L5-S1 joint space Straight Leg Raise: positive at 30 degrees right side/ left side Gaenslen's Test positive Sacral spine : Severe tenderness over the Sacroiliac joint: right side / left side Range of motion: Flexion of the lumbar spine <60 degrees Range of motion: Extension of the lumbar spine <20 degrees Gaenslen's Test positive right side / left side Douglas test: positive right side / left side Thigh Thrust Test positive right side / left side Sacral Thrust Test positive right side / left side Assessment and plan: Chronic LBP secondary to lumbar DDD, spondylosis with facet arthropathy without myelopathy Recommendation of BL iliolumbar ligament injection #1. May need a series for optimal pain relief. Risks, benefits of procedure discussed and pt verbalized understanding. Admits to anticoagulant use or medical history of diabetes. Protocol for discontinuation/ continuation of medications suhail procedure discussed. Minimal anesthesia provided, if clinically indicated, consisting of Versed and Fentanyl. All questions answered. I have spent less than 30 minutes on patient care today. Dr Ulloa was available by phone for the evaluation of this patient. The time was used to review the medical records including relevant urine studies and Prescription history (MAPs), review of the available imaging, evaluation and examination of the patient, coordination of care with the medical staff and if applicable referring physicians, as well as creation of the medical record PQRS Narrative: Smoking Status Current every day smoker Hx Alcohol Use (MH) No Home Medications: Ambulatory Orders Ibuprofen [Motrin] 800 mg PO BID PRN 11/30/13 buPROPion XL [Wellbutrin XL] 300 mg PO DAILY 06/12/15 ALPRAZolam [Xanax] 0.5 mg PO TID PRN 02/15/17 Docusate [Colace] 100 mg PO BID 02/15/17 Oxybutynin Chloride 5 mg PO BID 02/15/17 lamoTRIgine [LaMICtal] 100 mg PO HS 02/15/17 lamoTRIgine [LaMICtal] 200 mg PO DAILY 02/15/17 Controlled Substance Measures - Controlled Substance Measures Is patient prescribed a controlled substance at discharge?: No
== END ==
LOC: PNWHC3 07:22
PROVIDERS: ATTEND Specialist
DX: M51.37 Other intervertebral disc degeneration, lumbosacral region (principal); M47.817 Spondylosis without myelopathy or radiculopathy, lumbosacral region; G89.29 Other chronic pain; F17.200 Nicotine dependence, unspecified, uncomplicated; Z88.0 Allergy status to penicillin; Z91.018 Allergy to other foods
CPT/HCPCS: 99211

== ENCOUNTER 2023-01-12 06:18 | Day surgery (SDC) | payer MEDICARE, OTHER ==
[2023-01-07 10:41] VITALS: BMI 38.9
[2023-01-12 06:57] VITALS: TEMP 97
[2023-01-12] MEDS ORDERED: ROPIVACAINE 5 MG/ML 20 ML AMPULE ONE (07:25)
[2023-01-12] MEDS ORDERED: TRIAMCINOLONE ACETONIDE 40 MG/ML 1 ML VIAL ONE (07:25)
[2023-01-12] MEDS ORDERED: LACTATED RINGERS 1,000 ML IV SCH (07:30)
[2023-01-12 07:37] VITALS: RESP 18
--- NOTE | 2023-01-12 07:37 | P.PCN ---
Date of Procedure: 01/12/23 Description of Procedure: Preoperative diagnosis: . Iliolumbar syndrome Postoperative diagnosis: . Iliolumbar syndrome Procedure: Bilateral iliolumbar ligament injection EBL: None Anesthesia: 1% lidocaine Specimen removed: None Fluoroscopic image: Saved to electronic medical records Procedure indication: Patient had a history of chronic low back pain along with sacroiliac joint area, and posterior superior iliac spine area.. Patient tried conservative therapy, scheduled for diagnostic bilateral iliolumbar treatment injection for better pain relief. Procedure description: Patient was discussed regarding procedure in the preop holding area, risks benefits, complications, alternatives discussed with the patient. Patient agreed to proceed for the procedure. Using anteroposterior fluoroscopic view that side L5 transverse process, and sacral alae identified. Area of iliolumbar ligament trajectory identified on the left side using fluoroscopy. Then using a 22 G 3.5 inch spinal needle used advance in the trajectory of iliolumbar ligament area then after negative aspiration for blood, paresthesia, any other bodily fluids , after that in a fan-shaped manner 5 mL of block solution injected. The block solution containing 4.5 mL of 0.5% ropivacaine with 20 mg of Kenalog. Needle removed intact. Entire procedure repeated on the left side of iliolumbar ligament area. Skin cleaned, , and Band-Aid applied. Complications: None DISPOSITION / PLANS: The patient was placed in a supine position and transferred to the recovery area in a stable condition for observation. Patient was discharged from the recovery room after meeting discharge criteria. Home discharge instructions given to the patient by the staff. The patient was reexamined prior to discharge. The patient will schedule a follow up in the clinic in 4 weeks.
[2023-01-12 07:51] VITALS: BP 120/78; PULSE 78
--- NOTE | 2023-01-12 08:21 | FL ---
EXAMINATION TYPE: FL guided pain mgmt statistic DATE OF EXAM: 01/12/2023 HISTORY: Fluoroscopy time Total dose area product (DAP) in uGy*m?, mGy*cm? (or similar): 0.48726 IMPRESSION: 1. Fluoroscopy time.
== END 2023-01-12 07:53 | disposition home or self-care (01) ==
LOC: ORPAIN 06:18
DX: M24.28 Disorder of ligament, vertebrae (principal); G89.29 Other chronic pain; F32.A Depression, unspecified; K21.9 Gastro-esophageal reflux disease without esophagitis; M19.90 Unspecified osteoarthritis, unspecified site; E66.01 Morbid (severe) obesity due to excess calories; Z68.41 Body mass index [BMI] 40.0-44.9, adult; F17.210 Nicotine dependence, cigarettes, uncomplicated; Z88.0 Allergy status to penicillin; Z91.010 Allergy to peanuts; Z79.899 Other long term (current) drug therapy; Z79.1 Long term (current) use of non-steroidal anti-inflammatories (NSAID)
CPT/HCPCS: 20550; J3301; J2795

== ENCOUNTER 2023-05-13 09:07 | Inpatient (IN) | payer MEDICARE, OTHER ==
[2023-05-13] MEDS ORDERED: SODIUM CHLORIDE 0.9% 2,000 ML IV STA (09:48)
[2023-05-13] MEDS ORDERED: KETOROLAC 15 MG/ML 1 ML VIAL IVP STA (09:48)
[2023-05-13] MEDS ORDERED: ONDANSETRON 4 MG/2 ML VIAL IVP STA (09:48)
[2023-05-13 10:13] LABS: Basophils % (A) 0 %; Eosinophils # (A) 0.1 k/uL (0-0.7); Eosinophils % (A) 1 %; HCT 41.7 % (34.0-46.0); HGB 13.9 gm/dL (11.4-16.0); Lymphocytes # (A) 0.3 k/uL (1.0-4.8); Lymphocytes % (A) 3 %; MCH 31.1 pg (25.0-35.0); MCHC 33.4 g/dL (31.0-37.0); MCV 93.1 fL (80.0-100.0); Monocytes # (A) 0.3 k/uL (0-1.0); Monocytes % (A) 3 %; Neutrophils % (A) 92 %; Platelet Count 194 k/uL (150-450); RBC 4.48 m/uL (3.80-5.40); RDW 13.1 % (11.5-15.5); WBC 9.8 k/uL (3.8-10.6)
[2023-05-13 10:38] LABS: Appearance,Urine Cloudy (Clear); Bacteria,Urine Rare /hpf; Bilirubin,Urine 2+ (Negative); Blood,Urine Negative (Negative); Color,Urine Dark Brown; Glucose,Urine (UA) Trace (Negative); Granular Casts,Urine 9 /lpf (0); Hyaline Casts,Urine 1 /lpf (0-2); Ketones,Urine 1+ (Negative); Leukocyte Esterase,Urine Small (Negative); Mucus,Urine Many /hpf; Nitrite,Urine Negative (Negative); Protein,Urine 2+ (Negative); RBC,Urine 2 /hpf (0-5); Specific Gravity,Urine 1.031 (1.001-1.035); Squamous Epithelial Cell,Urine 4 /hpf (0-4); Urobilinogen,Urine >12.0 mg/dL (<2.0); WBC,Urine 7 /hpf (0-5)
[2023-05-13 10:39] LABS: ALT 77 U/L (4-34); AST 52 U/L (14-36); African American GFR (CKD) 89 (>60 ml/min/1.73 sqM); Albumin 3.3 g/dL (3.5-5.0); Alkaline Phosphatase 138 U/L (38-126); Anion Gap 13 mmol/L; Blood Urea Nitrogen 14 mg/dL (7-17); Calcium 9.2 mg/dL (8.4-10.2); Carbon Dioxide 19 mmol/L (22-30); Chloride 103 mmol/L (98-107); Glucose 152 mg/dL (74-99); Lipase 23 U/L (23-300); Non-African American GFR(CKD) 77 (>60 ml/min/1.73 sqM); Potassium 3.6 mmol/L (3.5-5.1); Sodium 135 mmol/L (137-145); Total Bilirubin 3.1 mg/dL (0.2-1.3); Total Protein 6.1 g/dL (6.3-8.2)
--- NOTE | 2023-05-13 11:02 | ED ---
Fever HPI - General Chief Complaint: Fever Stated Complaint: Fever,Chills Time Seen by Provider: 05/13/23 09:18 Source: patient, RN notes reviewed Mode of arrival: ambulatory Limitations: no limitations - History of Present Illness Initial Comments: 42-year-old male presents emergency Department chief complaint of fever. Patient states she was diagnosed with UTI she is grossly some Macrobid. She states she's having increasing pain, nausea vomiting diarrhea she complains of diffuse pain worse in her abdomen. Denies any sick contacts minimal cough she states she did it at home: Which was negative. She's had a prior appendectomy denies any chance . - Related Data Home Medications Medication Instructions Recorded Confirmed Ibuprofen [Motrin] 800 mg PO BID PRN 11/30/13 01/07/23 buPROPion XL [Wellbutrin XL] 300 mg PO DAILY 06/12/15 01/07/23 ALPRAZolam [Xanax] 0.5 mg PO TID PRN 02/15/17 01/07/23 Oxybutynin Chloride 5 mg PO BID 02/15/17 01/07/23 lamoTRIgine [LaMICtal] 100 mg PO TID 02/15/17 01/07/23 Spironolactone [Aldactone] 100 mg PO DAILY 01/07/23 01/07/23 Allergies Allergy/AdvReac Type Severity Reaction Status Date / Time amoxicillin Allergy "immune" Verified 05/13/23 09:17 pecan nut Allergy Anaphylaxis Verified 05/13/23 09:17 Review of Systems ROS Statement: Those systems with pertinent positive or pertinent negative responses have been documented in the HPI. ROS Other: All systems not noted in ROS Statement are negative. Past Medical History Past Medical History: GERD/Reflux, Osteoarthritis (OA) Additional Past Medical History / Comment(s): DDD, bulging and herniated discs. OCC PAIN IN LEGS, OCC NT LEGS/ARMS.palpitations with anxiety, constipation, occ urinary leakage, hx migraines, varicose veins, IBS, History of Any Multi-Drug Resistant Organisms: None Reported Past Surgical History: Appendectomy, Hysterectomy, Tubal Ligation Additional Past Surgical History / Comment(s): PELVIC LAPAROSCOPY, PILONIDAL CYSTECTOMY, pain clinic procedures. Past Anesthesia/Blood Transfusion Reactions: Motion Sickness Past Psychological History: Anxiety, Bipolar, Panic Disorder, PTSD Smoking Status: Current some day smoker, Vaper Past Alcohol Use History: Occasional Past Drug Use History: None Reported - Past Family History Mother Family Medical History: No Reported History Additional Family Medical History / Comment(s): . Father Family Medical History: Coronary Artery Disease (CAD) General Exam Limitations: no limitations General appearance: alert, in no apparent distress Head exam: Present: atraumatic, normocephalic, normal inspection Eye exam: Present: normal appearance, PERRL, EOMI. Absent: scleral icterus, conjunctival injection, periorbital swelling ENT exam: Present: normal exam, normal oropharynx, mucous membranes moist Neck exam: Present: normal inspection, full ROM. Absent: tenderness, meningismus, lymphadenopathy Respiratory exam: Present: normal lung sounds bilaterally. Absent: respiratory distress, wheezes, rales, rhonchi, stridor Cardiovascular Exam: Present: normal rhythm, tachycardia, normal heart sounds. Absent: systolic murmur, diastolic murmur, rubs, gallop, clicks GI/Abdominal exam: Present: soft, tenderness, normal bowel sounds. Absent: distended, guarding, rebound, rigid Course Vital Signs 05/13/23 05/13/23 09:14 11:18 Temperature 98.2 F 97.6 F Pulse Rate 111 H 90 Respiratory 16 18 Rate Blood Pressure 116/69 102/59 O2 Sat by Pulse 97 99 Oximetry Medical Decision Making - Medical Decision Making Was pt. sent in by a medical professional or institution (, PA, GAME AUTHOR, urgent care, hospital, or skilled nursing...) When possible be specific @ -No Did you speak to anyone other than the patient for history (EMS, parent, family, police, friend...)? What history was obtained from this source @ -No Did you review nursing and triage notes (agree or disagree)? Why? @ -I reviewed and agree with nursing and triage notes Were old charts reviewed (outside hosp., previous admission, EMS record, old EKG, old radiological studies, urgent care reports/EKG's, skilled nursing records)? Report findings @ -No old charts were reviewed Differential Diagnosis (chest pain, altered mental status, abdominal pain women, abdominal pain men, vaginal bleeding, weakness, fever, dyspnea, syncope, headache, dizziness, GI bleed, back pain, seizure, CVA, palpatations, mental health, musculoskeletal)? @ -Differential Abdominal Pain Women: Appendicitis, Cholecystitis, diverticulosis, ischemic bowel, pancreatitis, hepatitis, UTI, gastroenteritis, AAA, incarcerated hernia, bowel obstruction, constipation, inflammatory bowel, hepatitis, peptic ulcer disease, splenic infarction, perforated viscus, vulvitis, ovarian torsion, PID, kidney stone, placenta abruption, this is not meant to be an all-inclusive list EKG interpreted by me (3pts min.). @ -[None X-rays interpreted by me (1pt min.). @ -None done CT interpreted by me (1pt min.). @ -None done U/S interpreted by me (1pt. min.). @ -[Ultrasound shows no evidence of cholelithiasis but normal gallbladder wall What testing was considered but not performed or refused? (CT, X-rays, U/S, labs)? Why? @ -None What meds were considered but not given or refused? Why? @ -None Did you discuss the management of the patient with other professionals (professionals i.e. , PA, GAME AUTHOR, lab, RT, psych nurse, social work administrator, inward toll operator, teacher, weapons electrical engineering officer, field nurse case manager)? Give summary @ -[Dr. Otero admitted patient noted to have hyperbilirubinemia and mild transaminitis. Was smoking cessation discussed for >3mins.? @ -No Was critical care preformed (if so, how long)? @ -No Were there social determinants of health that impacted care today? How? (Homelessness, low income, unemployed, alcoholism, drug addiction, transport ation, low edu. Level, literacy, decrease access to med. care, custodial, rehab)? @ -No Was there de-escalation of care discussed even if they declined (Discuss DNR or withdrawal of care, Hospice)? DNR status @ -No What co-morbidities impacted this encounter? (DM, HTN, Smoking, COPD, CAD, Cancer, CVA, ARF, Chemo, Hep., AIDS, mental health diagnosis, sleep apnea, morbid obesity)? @ -None Was patient admitted / discharged? Hospital course, mention meds given and route, prescriptions, significant lab abnormalities, going to OR and other pertinent info. @ -Admitted There is no gallbladder wall changes or acute changes an ultrasound. Patiently admitted for GI consult. Ongoing nausea vomiting this may be viral in nature patient is for admission with GI consult Undiagnosed new problem with uncertain prognosis? @ -No Drug Therapy requiring intensive monitoring for toxicity (Heparin, Nitro, Insulin, Cardizem)? @ -No Were any procedures done? @ -No Diagnosis/symptom? @ -Transaminitis, hyperbilirubinemia, nausea vomiting Acute, or Chronic, or Acute on Chronic? @ -[Acute Uncomplicated (without systemic symptoms) or Complicated (systemic symptoms)? @ -[complicated Side effects of treatment? @ -No Exacerbation, Progression, or Severe Exacerbation? @ -No Poses a threat to life or bodily function? How? (Chest pain, [place], [place], pneumonia, PE, COPD, DKA, ARF, appy, cholecystitis, CVA, Diverticulitis, Homicidal, Suicidal, threat to staff... and all critical care pts) @ -No - Lab Data Result diagrams: 05/13/23 10:02 05/13/23 10:02 Lab Results 05/13/23 05/13/23 05/13/23 Range/Units 10:02 10:02 10:02 WBC 9.8 (3.8-10.6) k/uL RBC 4.48 (3.80-5.40) m/uL Hgb 13.9 (11.4-16.0) gm/dL Hct 41.7 (34.0-46.0) % MCV 93.1 (80.0-100.0) fL MCH 31.1 (25.0-35.0) pg MCHC 33.4 (31.0-37.0) g/dL RDW 13.1 (11.5-15.5) % Plt Count 194 (150-450) k/uL MPV 9.0 Neutrophils % 92 % Lymphocytes % 3 % Monocytes % 3 % Eosinophils % 1 % Basophils % 0 % Neutrophils # 9.0 H (1.3-7.7) k/uL Lymphocytes # 0.3 L (1.0-4.8) k/uL Monocytes # 0.3 (0-1.0) k/uL Eosinophils # 0.1 (0-0.7) k/uL Basophils # 0.0 (0-0.2) k/uL Sodium 135 L (137-145) mmol/L Potassium 3.6 (3.5-5.1) mmol/L Chloride 103 (98-107) mmol/L Carbon Dioxide 19 L (22-30) mmol/L Anion Gap 13 mmol/L BUN 14 (7-17) mg/dL Creatinine 0.92 (0.52-1.04) mg/dL Est GFR (CKD-EPI)AfAm 89 (>60 ml/min/1.73 sqM) Est GFR (CKD-EPI)NonAf 77 (>60 ml/min/1.73 sqM) Glucose 152 H (74-99) mg/dL Plasma Lactic Acid Nomi (0.7-2.0) mmol/L Calcium 9.2 (8.4-10.2) mg/dL Total Bilirubin 3.1 H (0.2-1.3) mg/dL AST 52 H (14-36) U/L ALT 77 H (4-34) U/L Alkaline Phosphatase 138 H (38-126) U/L Total Protein 6.1 L (6.3-8.2) g/dL Albumin 3.3 L (3.5-5.0) g/dL Lipase 23 (23-300) U/L Urine Color Dark Brown Urine Appearance Cloudy H (Clear) Urine pH 6.0 (5.0-8.0) Ur Specific Benedict 1.031 (1.001-1.035) Urine Protein 2+ H (Negative) Urine Glucose (UA) Trace H (Negative) Urine Ketones 1+ H (Negative) Urine Blood Negative (Negative) Urine Nitrite Negative (Negative) Urine Bilirubin 2+ H (Negative) Urine Urobilinogen >12.0 (<2.0) mg/dL Ur Leukocyte Esterase Small H (Negative) Urine RBC 2 (0-5) /hpf Urine WBC 7 H (0-5) /hpf Ur Squamous Epith Cells 4 (0-4) /hpf Urine Bacteria Rare H (None) /hpf Hyaline Casts 1 (0-2) /lpf Granular Casts 9 (0) /lpf Urine Mucus Many H (None) /hpf Influenza Type A (PCR) (Not Detectd) Influenza Type B (PCR) (Not Detectd) RSV (PCR) (Not Detectd) SARS-CoV-2 (PCR) (Not Detectd) 05/13/23 05/13/23 Range/Units 10:02 10:02 WBC (3.8-10.6) k/uL RBC (3.80-5.40) m/uL Hgb (11.4-16.0) gm/dL Hct (34.0-46.0) % MCV (80.0-100.0) fL MCH (25.0-35.0) pg MCHC (31.0-37.0) g/dL RDW (11.5-15.5) % Plt Count (150-450) k/uL MPV Neutrophils % % Lymphocytes % % Monocytes % % Eosinophils % % Basophils % % Neutrophils # (1.3-7.7) k/uL Lymphocytes # (1.0-4.8) k/uL Monocytes # (0-1.0) k/uL Eosinophils # (0-0.7) k/uL Basophils # (0-0.2) k/uL Sodium (137-145) mmol/L Potassium (3.5-5.1) mmol/L Chloride (98-107) mmol/L Carbon Dioxide (22-30) mmol/L Anion Gap mmol/L BUN (7-17) mg/dL Creatinine (0.52-1.04) mg/dL Est GFR (CKD-EPI)AfAm (>60 ml/min/1.73 sqM) Est GFR (CKD-EPI)NonAf (>60 ml/min/1.73 sqM) Glucose (74-99) mg/dL Plasma Lactic Acid Nomi 1.2 (0.7-2.0) mmol/L Calcium (8.4-10.2) mg/dL Total Bilirubin (0.2-1.3) mg/dL AST (14-36) U/L ALT (4-34) U/L Alkaline Phosphatase (38-126) U/L Total Protein (6.3-8.2) g/dL Albumin (3.5-5.0) g/dL Lipase (23-300) U/L Urine Color Urine Appearance (Clear) Urine pH (5.0-8.0) Ur Specific Benedict (1.001-1.035) Urine Protein (Negative) Urine Glucose (UA) (Negative) Urine Ketones (Negative) Urine Blood (Negative) Urine Nitrite (Negative) Urine Bilirubin (Negative) Urine Urobilinogen (<2.0) mg/dL Ur Leukocyte Esterase (Negative) Urine RBC (0-5) /hpf Urine WBC (0-5) /hpf Ur Squamous Epith Cells (0-4) /hpf Urine Bacteria (None) /hpf Hyaline Casts (0-2) /lpf Granular Casts (0) /lpf Urine Mucus (None) /hpf Influenza Type A (PCR) Not Detected (Not Detectd) Influenza Type B (PCR) Not Detected (Not Detectd) RSV (PCR) Not Detected (Not Detectd) SARS-CoV-2 (PCR) Not Detected (Not Detectd) Disposition Clinical Impression: Transaminitis, Hyperbilirubinemia, Nausea & vomiting Disposition: ADMITTED IP TO THIS HOSP Condition: Fair Referrals: Ana Cristina Cantu MD [Primary Care Provider] - 1-2 days Time of Disposition: 13:12
--- NOTE | 2023-05-13 11:57 | US ---
EXAMINATION TYPE: US gallbladder DATE OF EXAM: 05/13/2023 COMPARISON: US 2016 CLINICAL INDICATION: Female, 42 years old with history of pain; RUQ pain, N/V, fever/chills TECHNIQUE: Multiple sonographic images of the right upper quadrant are obtained. FINDINGS: EXAM MEASUREMENTS: Liver Length: 16.4 cm Gallbladder Wall: 0.2 cm CBD: 0.3 cm Right Kidney: 10.3 x 5.5 x 4.7 cm Pancreas: visualized portions wnl, limited by overlying midline bowel gas Liver: wnl Gallbladder: limited visualization, appears wnl as seen Evidence for sonographic Barrientos's sign: yes CBD: visualized portions wnl, limited by overlying bowel gas Right Kidney: wnl IMPRESSION: Sonographic Barrientos's sign. Otherwise study.
[2023-05-13] MEDS ORDERED: ONDANSETRON 4 MG/2 ML VIAL IVP PRN (13:12)
[2023-05-13] MEDS ORDERED: NALOXONE 0.4 MG/ML 1 ML VIAL IV PRN (13:12)
[2023-05-13 13:57] LABS: Acetaminophen <10.0 ug/mL; Bilirubin, Delta 1.1 mg/dL (0.0-0.2); Bilirubin,Unconjugated 0.8 mg/dL (0.0-1.1); LDH 208 U/L (120-246); Total Bilirubin 2.9 mg/dL (0.2-1.3)
[2023-05-13] MEDS: SODIUM CHLORIDE 0.9% 1,000 ML IV SCH (14:57)
--- NOTE | 2023-05-13 15:07 | P.HPIM ---
History of Present Illness H&P Date: 05/13/23 History of present illness; patient is a 42-year-old lady with past medical hist ory significant for depression, bipolar disorder presented to the ER for evaluation for fevers. Patient stated that she was having fevers over the weekend and went to see her primary care doctor's office on Wednesday, she has been having increased frequency of urination and burning. PCP evaluated the patient and diagnosed with her the UTI and discharged on Macrobid. Patient stated that he continued to spike fevers at home, was combining of chills at home as well. Also complaining of generalized abdominal pain. Complaining of loss of appetite as well. Complaining of nausea and vomiting as well. Because of the symptoms, patient came to the ER Initial lab work done in the ER showed WBC 9.8, hemoglobin 13.9, platelet count 194, sodium 138, potassium 3.6, BUN 14, creatinine 0.92, total bilirubin 2.9, AST 52, AST 57 Ultrasound Abdominal Done Showed Normal Gallbladder and No Bile Duct Dilatation Patient admitted to medicine service REVIEW OF SYSTEMS: CONSTITUTIONAL: As mentioned in HPI HEENT: No recent visual problems or hearing problems. Denied any sore throat. CARDIOVASCULAR: No chest pain, orthopnea, PND, no palpitations, no syncope. PULMONARY: No shortness of breath, no cough, no hemoptysis. GASTROINTESTINAL: As mentioned in HPI NEUROLOGICAL: No headaches, no weakness, no numbness. HEMATOLOGICAL: Denies any bleeding or petechiae. GENITOURINARY: Denies any burning micturition, frequency, or urgency. MUSCULOSKELETAL/RHEUMATOLOGICAL: Denies any joint pain, swelling, or any muscle pain. ENDOCRINE: Denies any polyuria or polydipsia. The rest of the 14-point review of systems is negative. PHYSICAL EXAMINATION: GENERAL: The patient is alert and oriented x3, not in any acute distress. Well developed, well nourished. HEENT: Pupils are round and equally reacting to light. EOMI. No scleral icterus. No conjunctival pallor. Normocephalic, atraumatic. No pharyngeal erythema. No thyromegaly. CARDIOVASCULAR: S1 and S2 present. No murmurs, rubs, or gallops. PULMONARY: Chest is clear to auscultation, no wheezing or crackles. ABDOMEN: Soft, nontender, nondistended, normoactive bowel sounds. Left-sided CVA tenderness noticeable MUSCULOSKELETAL: No joint swelling or deformity. EXTREMITIES: No cyanosis, clubbing, or pedal edema. NEUROLOGICAL: Gross neurological examination did not reveal any focal deficits. SKIN: No rashes. Assessment and plan Fever Elevated LFTs Abdominal pain Hyperbilirubinemia Recent UTI Depression Monitor vital signs Monitor CBC Monitor CMP Ordered blood cultures Ordered hepatitis panel Ordered MRCP Avoid hepatotoxic agents Consult GI Consult ID Labs and medication were reviewed.. Continue same treatment. Continue with symptomatic treatment. Resume home medication. Monitor labs and vitals. DVT and GI prophylaxis. Further recommendations as per clinical course of the patient Dictation was produced using [employer] dictation software. please excuse any grammatical, word or spelling errors. Past Medical History Past Medical History: GERD/Reflux, Osteoarthritis (OA) Additional Past Medical History / Comment(s): DDD, bulging and herniated discs. OCC PAIN IN LEGS, OCC NT LEGS/ARMS.palpitations with anxiety, constipation, occ urinary leakage, hx migraines, varicose veins, IBS, History of Any Multi-Drug Resistant Organisms: None Reported Past Surgical History: Appendectomy, Hysterectomy, Tubal Ligation Additional Past Surgical History / Comment(s): PELVIC LAPAROSCOPY, PILONIDAL CYSTECTOMY, pain clinic procedures. Past Anesthesia/Blood Transfusion Reactions: Motion Sickness Past Psychological History: Anxiety, Bipolar, Panic Disorder, PTSD Smoking Status: Current some day smoker, Vaper Past Alcohol Use History: Occasional Past Drug Use History: None Reported - Past Family History Mother Family Medical History: No Reported History Additional Family Medical History / Comment(s): . Father Family Medical History: Coronary Artery Disease (CAD) Medications and Allergies Home Medications Medication Instructions Recorded Confirmed Type Ibuprofen [Motrin] 800 mg PO TID PRN 11/30/13 05/13/23 History buPROPion XL [Wellbutrin XL] 300 mg PO DAILY 06/12/15 05/13/23 History Oxybutynin Chloride 5 mg PO DAILY 02/15/17 05/13/23 History lamoTRIgine [LaMICtal] 200 mg PO DAILY 02/15/17 05/13/23 History Spironolactone [Aldactone] 100 mg PO DAILY 01/07/23 05/13/23 History ALPRAZolam [Xanax] 0.5 mg PO DAILY 05/13/23 05/13/23 History ALPRAZolam [Xanax] 0.5 mg PO DAILY PRN 05/13/23 05/13/23 History Fluconazole [Diflucan] 150 mg PO ONCE PRN 05/13/23 05/13/23 History Nitrofurantoin Monohyd/M-Cryst 100 mg PO Q12HR 05/13/23 05/13/23 History [Macrobid] Allergies Allergy/AdvReac Type Severity Reaction Status Date / Time amoxicillin Allergy "immune" Verified 05/13/23 14:19 pecan nut Allergy Anaphylaxis Verified 05/13/23 14:19 Physical Exam Vitals: Vital Signs Temp Pulse Resp BP Pulse Ox 05/13/23 11:18 97.6 F 90 18 102/59 99 05/13/23 09:14 98.2 F 111 H 16 116/69 97 Intake and Output 05/12/23 05/13/23 05/13/23 22:59 06:59 14:59 Other: Weight 106.594 kg Results CBC & Chem 7: 05/13/23 10:02 05/13/23 10:02 Labs: Abnormal Lab Results - Last 24 Hours (Table) 05/13/23 05/13/23 05/13/23 Range/Units 10:02 10:02 10:02 Neutrophils # 9.0 H (1.3-7.7) k/uL Lymphocytes # 0.3 L (1.0-4.8) k/uL Sodium 135 L (137-145) mmol/L Carbon Dioxide 19 L (22-30) mmol/L Glucose 152 H (74-99) mg/dL Total Bilirubin 3.1 H (0.2-1.3) mg/dL Conjugated Bilirubin (0.0-0.3) mg/dL Delta Bilirubin (0.0-0.2) mg/dL AST 52 H (14-36) U/L ALT 77 H (4-34) U/L Alkaline Phosphatase 138 H (38-126) U/L Total Protein 6.1 L (6.3-8.2) g/dL Albumin 3.3 L (3.5-5.0) g/dL Urine Appearance Cloudy H (Clear) Urine Protein 2+ H (Negative) Urine Glucose (UA) Trace H (Negative) Urine Ketones 1+ H (Negative) Urine Bilirubin 2+ H (Negative) Ur Leukocyte Esterase Small H (Negative) Urine WBC 7 H (0-5) /hpf Urine Bacteria Rare H (None) /hpf Urine Mucus Many H (None) /hpf 05/13/23 Range/Units 10:02 Neutrophils # (1.3-7.7) k/uL Lymphocytes # (1.0-4.8) k/uL Sodium (137-145) mmol/L Carbon Dioxide (22-30) mmol/L Glucose (74-99) mg/dL Total Bilirubin 2.9 H (0.2-1.3) mg/dL Conjugated Bilirubin 1.0 H (0.0-0.3) mg/dL Delta Bilirubin 1.1 H (0.0-0.2) mg/dL AST (14-36) U/L ALT (4-34) U/L Alkaline Phosphatase (38-126) U/L Total Protein (6.3-8.2) g/dL Albumin (3.5-5.0) g/dL Urine Appearance (Clear) Urine Protein (Negative) Urine Glucose (UA) (Negative) Urine Ketones (Negative) Urine Bilirubin (Negative) Ur Leukocyte Esterase (Negative) Urine WBC (0-5) /hpf Urine Bacteria (None) /hpf Urine Mucus (None) /hpf
[2023-05-13 15:25] LABS: Partial Thromboplastin Time 25.8 sec (22.0-30.0); Prothrombin Time 11.3 sec (10.0-12.5)
--- NOTE | 2023-05-13 16:40 | US ---
EXAMINATION TYPE: US kidneys/renal and bladder DATE OF EXAM: 05/13/2023 COMPARISON: CLINICAL INDICATION: Female, 42 years old with history of Fever, rule outPyelonephritis; Patient stat es UTI and fever. Chronic back pain. EXAM MEASUREMENTS: Right Kidney: 10.8 x 5.0 x 4.6 cm Left Kidney: 11.9 x 4.4 x 5.4 cm Right Kidney: No hydronephrosis or masses seen Left Kidney: No hydronephrosis or masses seen Bladder: nondistended, not well visualized Bilateral Jets not seen There is no evidence for hydronephrosis at this point in time. No nephrolithiasis is seen. No cesar s are identified. The urinary bladder is anechoic. Bilateral ureteral jets are seen. IMPRESSION: No discrete abnormality appreciated.
[2023-05-13] MEDS: KETOROLAC 15 MG/ML 1 ML VIAL IVP PRN (18:09)
[2023-05-13] MEDS ORDERED: NITROFURANTOIN MONOHYD PO SCH (21:00)
[2023-05-13] MEDS ORDERED: M CRYST PO SCH (21:00)
[2023-05-13] MEDS ORDERED: NITROFURANTOIN MONOHYD/M-CRYST 100 MG CAP PO STA (21:00)
[2023-05-13] MEDS ORDERED: NITROFURANTOIN MONOHYD/M-CRYST 100 MG CAP PO SCH (21:45)
--- NOTE | 2023-05-13 22:10 | P.CONS ---
History of Present Illness - Reason for Consult Consult date: 05/13/23 - History of Present Illness Patient is a 42-year-old female with a past medical history significant for reflux osteoarthritis anxiety bipolar depression PTSD current smoker started getting sick on Wednesday and the patient did have an patient did have a urinary symptoms of burning frequency patient has been started on Macrobid did have some initial improvement however this morning patient did have recurrence of her pain on urination urine was mostly cloudy did have some suprapubic discomfort and has developed a fever with the symptoms the patient presented to the hospital on arrival to the ER the patient was afebrile and no fever has been recorded subsequently patient did have a normal white count did have elevated liver enzymes urine was cloudy 7 WBC influenza RSV COVID testing was negative patient did have a gallbladder ultrasound was normal study, patient has been continued on Macrobid infectious was consulted for further management of antibiotic patient complaining of mostly generalized body aches and also have some suprapubic discomfort mostly dull aching to sharp 5-6 out of 10 and no radiation Past Medical History Past Medical History: GERD/Reflux, Osteoarthritis (OA) Additional Past Medical History / Comment(s): DDD, bulging and herniated discs. OCC PAIN IN LEGS, OCC NT LEGS/ARMS.palpitations with anxiety, constipation, occ urinary leakage, hx migraines, varicose veins, IBS, History of Any Multi-Drug Resistant Organisms: None Reported Past Surgical History: Appendectomy, Hysterectomy, Tubal Ligation Additional Past Surgical History / Comment(s): PELVIC LAPAROSCOPY, PILONIDAL CYSTECTOMY, pain clinic procedures. Past Anesthesia/Blood Transfusion Reactions: Motion Sickness Past Psychological History: Anxiety, Bipolar, Panic Disorder, PTSD Smoking Status: Current some day smoker, Vaper Past Alcohol Use History: Occasional Past Drug Use History: None Reported - Past Family History Mother Family Medical History: No Reported History Additional Family Medical History / Comment(s): . Father Family Medical History: Coronary Artery Disease (CAD) Medications and Allergies Home Medications Medication Instructions Recorded Confirmed Type Ibuprofen [Motrin] 800 mg PO TID PRN 11/30/13 05/13/23 History buPROPion XL [Wellbutrin XL] 300 mg PO DAILY 06/12/15 05/13/23 History Oxybutynin Chloride 5 mg PO DAILY 02/15/17 05/13/23 History lamoTRIgine [LaMICtal] 200 mg PO DAILY 02/15/17 05/13/23 History Spironolactone [Aldactone] 100 mg PO DAILY 01/07/23 05/13/23 History ALPRAZolam [Xanax] 0.5 mg PO DAILY 05/13/23 05/13/23 History ALPRAZolam [Xanax] 0.5 mg PO DAILY PRN 05/13/23 05/13/23 History Fluconazole [Diflucan] 150 mg PO ONCE PRN 05/13/23 05/13/23 History Nitrofurantoin Monohyd/M-Cryst 100 mg PO Q12HR 05/13/23 05/13/23 History [Macrobid] Allergies Allergy/AdvReac Type Severity Reaction Status Date / Time amoxicillin Allergy "immune" Verified 05/13/23 14:19 pecan nut Allergy Anaphylaxis Verified 05/13/23 14:19 Physical Exam Vitals: Vital Signs Temp Pulse Resp BP Pulse Ox 05/13/23 11:18 97.6 F 90 18 102/59 99 05/13/23 09:14 98.2 F 111 H 16 116/69 97 Intake and Output 05/13/23 05/13/23 05/13/23 06:59 14:59 22:59 Other: Weight 106.594 kg Results CBC & Chem 7: 05/13/23 10:02 05/13/23 10:02 Labs: Abnormal Lab Results - Last 24 Hours (Table) 05/13/23 05/13/23 05/13/23 Range/Units 10:02 10:02 10:02 Neutrophils # 9.0 H (1.3-7.7) k/uL Lymphocytes # 0.3 L (1.0-4.8) k/uL Sodium 135 L (137-145) mmol/L Carbon Dioxide 19 L (22-30) mmol/L Glucose 152 H (74-99) mg/dL Total Bilirubin 3.1 H (0.2-1.3) mg/dL Conjugated Bilirubin (0.0-0.3) mg/dL Delta Bilirubin (0.0-0.2) mg/dL AST 52 H (14-36) U/L ALT 77 H (4-34) U/L Alkaline Phosphatase 138 H (38-126) U/L Total Protein 6.1 L (6.3-8.2) g/dL Albumin 3.3 L (3.5-5.0) g/dL Urine Appearance Cloudy H (Clear) Urine Protein 2+ H (Negative) Urine Glucose (UA) Trace H (Negative) Urine Ketones 1+ H (Negative) Urine Bilirubin 2+ H (Negative) Ur Leukocyte Esterase Small H (Negative) Urine WBC 7 H (0-5) /hpf Urine Bacteria Rare H (None) /hpf Urine Mucus Many H (None) /hpf 05/13/23 Range/Units 10:02 Neutrophils # (1.3-7.7) k/uL Lymphocytes # (1.0-4.8) k/uL Sodium (137-145) mmol/L Carbon Dioxide (22-30) mmol/L Glucose (74-99) mg/dL Total Bilirubin 2.9 H (0.2-1.3) mg/dL Conjugated Bilirubin 1.0 H (0.0-0.3) mg/dL Delta Bilirubin 1.1 H (0.0-0.2) mg/dL AST (14-36) U/L ALT (4-34) U/L Alkaline Phosphatase (38-126) U/L Total Protein (6.3-8.2) g/dL Albumin (3.5-5.0) g/dL Urine Appearance (Clear) Urine Protein (Negative) Urine Glucose (UA) (Negative) Urine Ketones (Negative) Urine Bilirubin (Negative) Ur Leukocyte Esterase (Negative) Urine WBC (0-5) /hpf Urine Bacteria (None) /hpf Urine Mucus (None) /hpf Assessment and Plan Plan: 1patient with hospital with a fever generalized body aches and did have some suprapubic discomfort did have a urinary symptom high clinical suspicious for symptomatic urinary tract infection failing outpatient Macrobid therapy 2-patient with a penicillin allergy, with reaction described as immune not a t rue allergy 3-discontinue Macrobid 4-we will start patient Rocephin 1 g daily while waiting for the culture to finalize We will follow on clinical condition and cultures to further adjust medication i f needed Thank you for this consultation we will follow the patient along with you Dictation was produced using [employer] dictation software. please excuse any grammatical, word or spelling errors. Time with Patient: Greater than 30
[2023-05-13] MEDS: PHENAZOPYRIDINE 200 MG TAB PO PRN (23:25)
[2023-05-14] MEDS: KETOROLAC 15 MG/ML 1 ML VIAL IVP PRN ×4 (01:00→22:16)
[2023-05-14 01:28] LABS: Hepatitis A Antibody IgM Nonreactive; Hepatitis B Core IgM Nonreactive; Hepatitis B Surface Antigen Nonreactive; Hepatitis C IgG Antibody Nonreactive
[2023-05-14] MEDS: SODIUM CHLORIDE 0.9% 250 ML IV SCH ×2 (03:45→04:06)
[2023-05-14] MEDS ORDERED: SODIUM CHLORIDE 0.9% 1,000 ML IV SCH (04:00)
[2023-05-14] MEDS: SODIUM CHLORIDE 0.9% 1,000 ML IV SCH (04:03)
[2023-05-14 07:14] LABS: Basophils % (A) 0 %; Eosinophils # (A) 0.2 k/uL (0-0.7); Eosinophils % (A) 2 %; HCT 38.1 % (34.0-46.0); HGB 12.8 gm/dL (11.4-16.0); Lymphocytes # (A) 0.5 k/uL (1.0-4.8); Lymphocytes % (A) 5 %; MCH 31.3 pg (25.0-35.0); MCHC 33.5 g/dL (31.0-37.0); MCV 93.5 fL (80.0-100.0); Mean Platelet Volume 9.4; Monocytes # (A) 0.3 k/uL (0-1.0); Monocytes % (A) 3 %; Neutrophils # (A) 8.2 k/uL (1.3-7.7); Neutrophils % (A) 89 %; Platelet Count 186 k/uL (150-450); RBC 4.08 m/uL (3.80-5.40); RDW 13.2 % (11.5-15.5); WBC 9.2 k/uL (3.8-10.6)
[2023-05-14 07:38] LABS: ALT 68 U/L (4-34); AST 42 U/L (14-36); African American GFR (CKD) >90 (>60 ml/min/1.73 sqM); Albumin 2.7 g/dL (3.5-5.0); Albumin/Globulin Ratio 1.1; Alkaline Phosphatase 122 U/L (38-126); Anion Gap 8 mmol/L; Blood Urea Nitrogen 9 mg/dL (7-17); Calcium 7.8 mg/dL (8.4-10.2); Carbon Dioxide 20 mmol/L (22-30); Chloride 107 mmol/L (98-107); Globulin 2.4 g/dL; Glucose 117 mg/dL (74-99); Non-African American GFR(CKD) 88 (>60 ml/min/1.73 sqM); Potassium 3.5 mmol/L (3.5-5.1); Sodium 135 mmol/L (137-145); Total Bilirubin 1.3 mg/dL (0.2-1.3); Total Protein 5.1 g/dL (6.3-8.2)
[2023-05-14] MEDS: lamoTRIgine 100 MG TAB PO SCH (08:50)
[2023-05-14] MEDS: buPROPion XL 150 MG TAB.ER.24H PO SCH (08:50)
[2023-05-14] MEDS: PHENAZOPYRIDINE 200 MG TAB PO PRN (08:50)
[2023-05-14] MEDS: ALPRAZolam 0.5 MG TAB PO SCH (08:50)
--- NOTE | 2023-05-14 09:26 | P.CONS ---
History of Present Illness - Reason for Consult Consult date: 05/14/23 Hyperbilirubinemia Requesting physician: Margarito Landeros - Chief Complaint Fever and body aches - History of Present Illness This is a pleasant 42-year-old female with a history of depression who recently had burning with urination, fever, chills and went to see her PCP. She was diagnosed with a UTI and started on Macrobid and Flagyl on Wednesday. She continued to have fever, chills, body aches and severe headache as well as low back pain and presented to the emergency department for further evaluation. Patient assumed she had Covid however patient did test negative for influenza and COVID-19. On admission blood work showed no leukocytosis, she did however have elevated LFTs. Acute hepatitis panel was ordered and have hepatitis panel was nonreactive. Patient denies any previous history of liver disease, she denies any abdominal pain, states she did have some nausea and vomiting on Wednesday but no further. She states that she has a severe headache and rates it at 8/9 out of 10 as well as low back pain. No previous history of known liver disease, denies any regular alcohol use. States she is only occasional social drinker. Gallbladder ultrasound reviewed reports limited visualization of the gallbladder but appears normal. Liver normal, common bile duct non-dilated at 0.3 cm. Review of Systems REVIEW OF SYSTEMS: CARDIOPULMONARY: No chest pain or shortness of breath. Gastrointestinal: No abdominal pain. Nausea and vomiting 1-2 times Wednesday. No hematemesis, coffee-ground emesis. No rectal bleeding, or melena. GENITOURINARY: Dysuria, reported UTI on Macrobid and Flagyl. MUSCULOSKELETAL: Reports normal range of motion. Low back pain. SKIN: No rashes. No jaundice. ENDOCRINE: Fever and chills. No excessive weight gain or loss. No polydipsia or polyuria. PSYCHIATRIC: Unremarkable. NEUROLOGY: No change in mental status. Headache. ENT: Vision unremarkable. CONSTITUTIONAL: No recent weight loss. Fever, chills, body ache since Wednesday. Past Medical History Past Medical History: GERD/Reflux, Osteoarthritis (OA) Additional Past Medical History / Comment(s): DDD, bulging and herniated discs. OCC PAIN IN LEGS, OCC NT LEGS/ARMS.palpitations with anxiety, constipation, occ urinary leakage, hx migraines, varicose veins, IBS, History of Any Multi-Drug Resistant Organisms: None Reported Past Surgical History: Appendectomy, Hysterectomy, Tubal Ligation Additional Past Surgical History / Comment(s): PELVIC LAPAROSCOPY, PILONIDAL CYSTECTOMY, pain clinic procedures. Past Anesthesia/Blood Transfusion Reactions: No Reported Reaction Past Psychological History: Anxiety, Bipolar, Panic Disorder, PTSD Smoking Status: Current some day smoker, Vaper Past Alcohol Use History: Occasional Additional Past Alcohol Use History / Comment(s): SMOKES 1/2 PPD SINCE AGE 10. Past Drug Use History: None Reported - Past Family History Mother Family Medical History: No Reported History Additional Family Medical History / Comment(s): . Father Family Medical History: Coronary Artery Disease (CAD) Medications and Allergies Home Medications Medication Instructions Recorded Confirmed Type Ibuprofen [Motrin] 800 mg PO TID PRN 11/30/13 05/13/23 History buPROPion XL [Wellbutrin XL] 300 mg PO DAILY 06/12/15 05/13/23 History Oxybutynin Chloride 5 mg PO DAILY 02/15/17 05/13/23 History lamoTRIgine [LaMICtal] 200 mg PO DAILY 02/15/17 05/13/23 History Spironolactone [Aldactone] 100 mg PO DAILY 01/07/23 05/13/23 History ALPRAZolam [Xanax] 0.5 mg PO DAILY 05/13/23 05/13/23 History ALPRAZolam [Xanax] 0.5 mg PO DAILY PRN 05/13/23 05/13/23 History Fluconazole [Diflucan] 150 mg PO ONCE PRN 05/13/23 05/13/23 History Nitrofurantoin Monohyd/M-Cryst 100 mg PO Q12HR 05/13/23 05/13/23 History [Macrobid] Allergies Allergy/AdvReac Type Severity Reaction Status Date / Time amoxicillin Allergy "immune" Verified 05/13/23 14:19 pecan nut Allergy Anaphylaxis Verified 05/13/23 14:19 Physical Exam Vitals: Vital Signs Temp Pulse Pulse Resp BP BP Pulse Ox 05/14/23 02:00 99.5 F 105 H 17 86/56 94 L 05/13/23 22:14 100.3 F H 116 H 17 124/69 97 05/13/23 18:00 97 05/13/23 16:00 17 97 05/13/23 11:18 97.6 F 90 18 102/59 99 05/13/23 09:14 98.2 F 111 H 16 116/69 97 Intake and Output 05/13/23 05/13/23 05/14/23 14:59 22:59 06:59 Other: # Voids 1 Weight 106.594 kg 106.594 kg General appearance: The patient is alert, oriented, appears in no acute distress. HET: Head is normocephalic and atraumatic. Conjunctiva pink. Sclera anicteric. Neck: Supple without lymphadenopathy. Trachea midline. Heart: Regular. Lungs: Equal expansion, normal respiratory effort. Abdomen: Soft, diffuse tenderness, nondistended. Obese. No guarding or rigidity. Skin: No rashes. Mild jaundice. Extremities: Normal skin color and turgor. No pedal edema. Neurological: No focal deficits. Alert and oriented x3. Results CBC & Chem 7: 05/14/23 07:05 05/14/23 07:05 Labs: Abnormal Lab Results - Last 24 Hours (Table) 05/13/23 05/13/23 05/13/23 Range/Units 10:02 10:02 10:02 Neutrophils # 9.0 H (1.3-7.7) k/uL Lymphocytes # 0.3 L (1.0-4.8) k/uL Sodium 135 L (137-145) mmol/L Carbon Dioxide 19 L (22-30) mmol/L Glucose 152 H (74-99) mg/dL Total Bilirubin 3.1 H (0.2-1.3) mg/dL Conjugated Bilirubin (0.0-0.3) mg/dL Delta Bilirubin (0.0-0.2) mg/dL AST 52 H (14-36) U/L ALT 77 H (4-34) U/L Alkaline Phosphatase 138 H (38-126) U/L Total Protein 6.1 L (6.3-8.2) g/dL Albumin 3.3 L (3.5-5.0) g/dL Urine Appearance Cloudy H (Clear) Urine Protein 2+ H (Negative) Urine Glucose (UA) Trace H (Negative) Urine Ketones 1+ H (Negative) Urine Bilirubin 2+ H (Negative) Ur Leukocyte Esterase Small H (Negative) Urine WBC 7 H (0-5) /hpf Urine Bacteria Rare H (None) /hpf Urine Mucus Many H (None) /hpf 05/13/23 Range/Units 10:02 Neutrophils # (1.3-7.7) k/uL Lymphocytes # (1.0-4.8) k/uL Sodium (137-145) mmol/L Carbon Dioxide (22-30) mmol/L Glucose (74-99) mg/dL Total Bilirubin 2.9 H (0.2-1.3) mg/dL Conjugated Bilirubin 1.0 H (0.0-0.3) mg/dL Delta Bilirubin 1.1 H (0.0-0.2) mg/dL AST (14-36) U/L ALT (4-34) U/L Alkaline Phosphatase (38-126) U/L Total Protein (6.3-8.2) g/dL Albumin (3.5-5.0) g/dL Urine Appearance (Clear) Urine Protein (Negative) Urine Glucose (UA) (Negative) Urine Ketones (Negative) Urine Bilirubin (Negative) Ur Leukocyte Esterase (Negative) Urine WBC (0-5) /hpf Urine Bacteria (None) /hpf Urine Mucus (None) /hpf Comments: Gallbladder ultrasound reports sonographic Barrientos's sign. Otherwise normal study. Assessment and Plan (1) Transaminitis Narrative/Plan: 42-year-old female presenting to the emergency department with fever chills and body aches since Wednesday. Wednesday she was seen and diagnosed with a urinary tract infection started on Macrobid and Flagyl. Continue to have symptoms of fever and chills now starting to have headaches and back pain. She had admitting labs that were significant for elevated total bilirubin as well as LFTs. Unclear etiology likely viral. Gallbladder ultrasound reviewed, no CBD dilation. Doubt cholestasis, no CBD dilation noted or gallstones on gallbladder ultrasound. Will order EBV and CMV. Continue to trend LFTs. Current Visit: Yes Status: Acute Code(s): R74.01 - ELEVATION OF LEVELS OF LIVER TRANSAMINASE LEVELS SNOMED Code(s): 124002902 (2) Hyperbilirubinemia Current Visit: Yes Status: Acute Code(s): E80.6 - OTHER DISORDERS OF BILIRUBIN METABOLISM SNOMED Code(s): 01677491 (3) Fever Current Visit: Yes Status: Acute Code(s): R50.9 - FEVER, UNSPECIFIED SNOMED Code(s): 616258262 (4) UTI (urinary tract infection) Current Visit: Yes Status: Acute Code(s): N39.0 - URINARY TRACT INFECTION, SITE NOT SPECIFIED SNOMED Code(s): 51163620 Plan: 1. Continue symptomatic and supportive care 2. EBV and CMV ordered 3. Daily CMP, Trend LFT pattern 4. No further workup recommended at this time, likely elevated LFTs result of virus 5. Patient can follow-up with gastroenterology in 1-2 weeks if needed 6. Continue with recommendations from infectious disease Thank you for allowing us to participate in the care of the patient, the GI service will sign off, gastroenterology will not be available at the hospital this weekend and through next week. If further evaluation by gastroenterology is required the patient will need transfer as per the primary team's discretion. Dr. Joanne Lemon I agree with the dictator's note, documented as a scribe by Christa Contreras.
--- NOTE | 2023-05-14 12:47 | P.PN ---
Subjective Progress Note Date: 05/14/23 patient is a 42-year-old lady with past medical history significant for depression, bipolar disorder presented to the ER for evaluation for fevers. Patient stated that she was having fevers over the weekend and went to see her primary care doctor's office on Wednesday, she has been having increased frequency of urination and burning. PCP evaluated the patient and diagnosed with her the UTI and discharged on Macrobid. Patient stated that he continued to spike fevers at home, was combining of chills at home as well. Also complaining of generalized abdominal pain. Complaining of loss of appetite as well. Complaining of nausea and vomiting as well. Because of the symptoms, patient came to the ER Initial lab work done in the ER showed WBC 9.8, hemoglobin 13.9, platelet count 194, sodium 138, potassium 3.6, BUN 14, creatinine 0.92, total bilirubin 2.9, AST 52, AST 57 Ultrasound Abdominal Done Showed Normal Gallbladder and No Bile Duct Dilatation Patient admitted to medicine service 05/14. Patient seen and examined. Lab work done this morning showed sodium 135, potassium 3.5, bilirubin has improved to 1.3, AST improved to 42, ALT improved to 68. Had low-grade fever of 100.8 overnight. States abdominal pain has improved. Denies any lethargy or weakness REVIEW OF SYSTEMS: CONSTITUTIONAL: As mentioned above CARDIOVASCULAR: No chest pain, no palpitations, no syncope. PULMONARY: No shortness of breath, no cough, GASTROINTESTINAL: No diarrhea, no nausea, no vomiting, no abdominal pain. NEUROLOGICAL: No headaches, no weakness, PHYSICAL EXAMINATION: GENERAL: The patient is alert and oriented x3, not in any acute distress. Well developed, well nourished. HEENT: Pupils are round and equally reacting to light. EOMI. No scleral icterus. No conjunctival pallor. Normocephalic, atraumatic. No pharyngeal erythema. No thyromegaly. CARDIOVASCULAR: S1 and S2 present. No murmurs, rubs, or gallops. PULMONARY: Chest is clear to auscultation, no wheezing or crackles. ABDOMEN: Soft, nontender, nondistended, normoactive bowel sounds. No palpable organomegaly. MUSCULOSKELETAL: No joint swelling or deformity. EXTREMITIES: No cyanosis, clubbing, or pedal edema. NEUROLOGICAL: Gross neurological examination did not reveal any focal deficits. SKIN: No rashes. Assessment and plan Fever UTI Elevated LFTs Abdominal pain Hyperbilirubinemia Depression Monitor vital signs Monitor CBC Monitor CMP Follow-up on blood cultures Urine cultures Continue IV Rocephin Ordered MRCP Avoid hepatotoxic agents ID following GI following Labs and medication were reviewed.. Continue same treatment. Continue with symptomatic treatment. Resume home medication. Monitor labs and vitals. DVT and GI prophylaxis. Further recommendations as per clinical course of the p atient Dictation was produced using [employer] dictation software. please excuse any grammatical, word or spelling errors. Objective - Vital Signs Vital signs: Vital Signs Temp 100.8 F H 05/14/23 07:50 Pulse 111 H 05/14/23 07:50 Resp 18 05/14/23 07:50 BP 106/66 05/14/23 07:50 Pulse Ox 95 05/14/23 07:50 FiO2 Intake & Output 05/13/23 05/14/23 05/14/23 18:59 06:59 18:59 Weight 106.594 kg 106.594 kg Other: # Voids 1 1 - Labs CBC & Chem 7: 05/14/23 07:05 05/14/23 07:05 Labs: Abnormal Lab Results - Last 24 Hours (Table) 05/13/23 05/13/23 05/13/23 Range/Units 10:02 10:02 10:02 Neutrophils # 9.0 H (1.3-7.7) k/uL Lymphocytes # 0.3 L (1.0-4.8) k/uL Sodium 135 L (137-145) mmol/L Carbon Dioxide 19 L (22-30) mmol/L Glucose 152 H (74-99) mg/dL Calcium (8.4-10.2) mg/dL Total Bilirubin 3.1 H (0.2-1.3) mg/dL Conjugated Bilirubin (0.0-0.3) mg/dL Delta Bilirubin (0.0-0.2) mg/dL AST 52 H (14-36) U/L ALT 77 H (4-34) U/L Alkaline Phosphatase 138 H (38-126) U/L Total Protein 6.1 L (6.3-8.2) g/dL Albumin 3.3 L (3.5-5.0) g/dL Urine Appearance Cloudy H (Clear) Urine Protein 2+ H (Negative) Urine Glucose (UA) Trace H (Negative) Urine Ketones 1+ H (Negative) Urine Bilirubin 2+ H (Negative) Ur Leukocyte Esterase Small H (Negative) Urine WBC 7 H (0-5) /hpf Urine Bacteria Rare H (None) /hpf Urine Mucus Many H (None) /hpf 05/13/23 05/14/23 05/14/23 Range/Units 10:02 07:05 07:05 Neutrophils # 8.2 H (1.3-7.7) k/uL Lymphocytes # 0.5 L (1.0-4.8) k/uL Sodium 135 L (137-145) mmol/L Carbon Dioxide 20 L (22-30) mmol/L Glucose 117 H (74-99) mg/dL Calcium 7.8 L (8.4-10.2) mg/dL Total Bilirubin 2.9 H (0.2-1.3) mg/dL Conjugated Bilirubin 1.0 H (0.0-0.3) mg/dL Delta Bilirubin 1.1 H (0.0-0.2) mg/dL AST 42 H (14-36) U/L ALT 68 H (4-34) U/L Alkaline Phosphatase (38-126) U/L Total Protein 5.1 L (6.3-8.2) g/dL Albumin 2.7 L (3.5-5.0) g/dL Urine Appearance (Clear) Urine Protein (Negative) Urine Glucose (UA) (Negative) Urine Ketones (Negative) Urine Bilirubin (Negative) Ur Leukocyte Esterase (Negative) Urine WBC (0-5) /hpf Urine Bacteria (None) /hpf Urine Mucus (None) /hpf
--- NOTE | 2023-05-14 16:27 | P.PN ---
Subjective Progress Note Date: 05/14/23 Principal diagnosis: Urinary tract infection Patient is a 42-year-old female with a past medical history significant for reflux osteoarthritis anxiety bipolar depression PTSD current smoker started getting sick on Wednesday , did have mostly urinary syndrome diagnosed with UTI treated with the Macrobid initial improvement subsequently worsening symptoms and fever for the patient presented to hospital. On today's evaluation that is 05/14/2023, the patient remains to be afebrile the patient is breathing comfortably on room air without need for supplemental oxygen, the patient denies chest pain, shortness of breath or cough, patient denies nausea/vomiting , no diarrhea and no abdominal pain, patient did have improvement in the urinary symptoms Patient did have a white count of 9.2, creatinine 0.82, hepatitis panel negative CMV antibodies negative Objective - Vital Signs Vital signs: Vital Signs Temp 100.8 F H 05/14/23 07:50 Pulse 111 H 05/14/23 07:50 Resp 18 05/14/23 07:50 BP 106/66 05/14/23 07:50 Pulse Ox 95 05/14/23 07:50 FiO2 Intake & Output 05/13/23 05/14/23 05/14/23 18:59 06:59 18:59 Weight 106.594 kg 106.594 kg Other: # Voids 1 1 - Exam GENERAL DESCRIPTION: A middle-age female up in bed in no distress RESPIRATORY SYSTEM: Unlabored breathing , decreased breath sounds at bases HEART: S1 S2 regular rate and rhythm , ABDOMEN: Soft , no tenderness EXTREMITIES: No edema feet - Labs CBC & Chem 7: 05/14/23 07:05 05/14/23 07:05 Labs: Abnormal Lab Results - Last 24 Hours (Table) 05/13/23 05/14/23 05/14/23 Range/Units 10:02 07:05 07:05 Neutrophils # 8.2 H (1.3-7.7) k/uL Lymphocytes # 0.5 L (1.0-4.8) k/uL Sodium 135 L (137-145) mmol/L Carbon Dioxide 20 L (22-30) mmol/L Glucose 117 H (74-99) mg/dL Calcium 7.8 L (8.4-10.2) mg/dL Total Bilirubin 2.9 H (0.2-1.3) mg/dL Conjugated Bilirubin 1.0 H (0.0-0.3) mg/dL Delta Bilirubin 1.1 H (0.0-0.2) mg/dL AST 42 H (14-36) U/L ALT 68 H (4-34) U/L Total Protein 5.1 L (6.3-8.2) g/dL Albumin 2.7 L (3.5-5.0) g/dL Assessment and Plan (1) Transaminitis Current Visit: Yes Status: Acute Code(s): R74.01 - ELEVATION OF LEVELS OF LIVER TRANSAMINASE LEVELS SNOMED Code(s): 146702177 (2) UTI (urinary tract infection) Current Visit: Yes Status: Acute Code(s): N39.0 - URINARY TRACT INFECTION, SITE NOT SPECIFIED SNOMED Code(s): 77388498 Plan: 1patient with hospital with a fever generalized body aches and did have some suprapubic discomfort did have a urinary symptom high clinical suspicious for symptomatic urinary tract infection failing outpatient Macrobid therapy 2-patient with a penicillin allergy, with reaction described as immune not a true allergy 3Ultrasound of the abdomen was negative hepatitis panel negative CMV antibodies negative 4-patient seemed to have shown clinical improvement with the Rocephin to continue while waiting for the culture finalized Dictation was produced using [employer] dictation software. please excuse any grammatical, word or spelling errors. Time with Patient: Less than 30
[2023-05-14 18:36] LABS: EBV-EA (IgG) <0.2 AI; EBV-EBNA(IgG) 4.6; EBV-VCA (IgM) <0.2 AI
[2023-05-15] MEDS: KETOROLAC 15 MG/ML 1 ML VIAL IVP PRN ×3 (06:50→21:13)
[2023-05-15] MEDS: lamoTRIgine 100 MG TAB PO SCH (08:16)
[2023-05-15] MEDS: buPROPion XL 150 MG TAB.ER.24H PO SCH (08:17)
[2023-05-15] MEDS: ALPRAZolam 0.5 MG TAB PO SCH (08:17)
[2023-05-15 08:47] LABS: ALT 50 U/L (4-34); AST 25 U/L (14-36); African American GFR (CKD) >90 (>60 ml/min/1.73 sqM); Albumin 2.5 g/dL (3.5-5.0); Albumin/Globulin Ratio 1.1; Alkaline Phosphatase 116 U/L (38-126); Anion Gap 8 mmol/L; Blood Urea Nitrogen 9 mg/dL (7-17); Calcium 7.8 mg/dL (8.4-10.2); Carbon Dioxide 20 mmol/L (22-30); Chloride 108 mmol/L (98-107); Globulin 2.3 g/dL; Glucose 118 mg/dL (74-99); Non-African American GFR(CKD) >90 (>60 ml/min/1.73 sqM); Potassium 3.5 mmol/L (3.5-5.1); Sodium 136 mmol/L (137-145); Total Bilirubin 0.7 mg/dL (0.2-1.3); Total Protein 4.8 g/dL (6.3-8.2)
[2023-05-15 08:52] LABS: Basophils % (A) 0 %; Eosinophils # (A) 0.2 k/uL (0-0.7); Eosinophils % (A) 2 %; HCT 34.9 % (34.0-46.0); HGB 11.2 gm/dL (11.4-16.0); Lymphocytes # (A) 1.3 k/uL (1.0-4.8); Lymphocytes % (A) 11 %; MCH 30.2 pg (25.0-35.0); MCHC 32.2 g/dL (31.0-37.0); MCV 93.7 fL (80.0-100.0); Mean Platelet Volume 9.7; Monocytes # (A) 0.4 k/uL (0-1.0); Monocytes % (A) 3 %; Neutrophils # (A) 9.8 k/uL (1.3-7.7); Neutrophils % (A) 82 %; Platelet Count 199 k/uL (150-450); RBC 3.72 m/uL (3.80-5.40); RDW 13.9 % (11.5-15.5); WBC 11.9 k/uL (3.8-10.6)
--- NOTE | 2023-05-15 13:14 | P.PN ---
Subjective Progress Note Date: 05/15/23 patient is a 42-year-old lady with past medical history significant for depression, bipolar disorder presented to the ER for evaluation for fevers. Patient stated that she was having fevers over the weekend and went to see her primary care doctor's office on Wednesday, she has been having increased frequency of urination and burning. PCP evaluated the patient and diagnosed with her the UTI and discharged on Macrobid. Patient stated that he continued to spike fevers at home, was combining of chills at home as well. Also complaining of generalized abdominal pain. Complaining of loss of appetite as well. Complaining of nausea and vomiting as well. Because of the symptoms, patient came to the ER Initial lab work done in the ER showed WBC 9.8, hemoglobin 13.9, platelet count 194, sodium 138, potassium 3.6, BUN 14, creatinine 0.92, total bilirubin 2.9, AST 52, AST 57 Ultrasound Abdominal Done Showed Normal Gallbladder and No Bile Duct Dilatation Patient admitted to medicine service 05/14. Patient seen and examined. Lab work done this morning showed sodium 135, potassium 3.5, bilirubin has improved to 1.3, AST improved to 42, ALT improved to 68. Had low-grade fever of 100.8 overnight. States abdominal pain has improved. Denies any lethargy or weakness 05/15. Patient seen and examined. Hepatitis panel negative, EBV IgG positive. Fevers have improved. Denies any lethargy or weakness. REVIEW OF SYSTEMS: CONSTITUTIONAL: As mentioned above CARDIOVASCULAR: No chest pain, no palpitations, no syncope. PULMONARY: No shortness of breath, no cough, GASTROINTESTINAL: No diarrhea, no nausea, no vomiting, no abdominal pain. NEUROLOGICAL: No headaches, no weakness, PHYSICAL EXAMINATION: GENERAL: The patient is alert and oriented x3, not in any acute distress. Well developed, well nourished. HEENT: Pupils are round and equally reacting to light. EOMI. No scleral icterus. No conjunctival pallor. Normocephalic, atraumatic. No pharyngeal erythema. No th yromegaly. CARDIOVASCULAR: S1 and S2 present. No murmurs, rubs, or gallops. PULMONARY: Chest is clear to auscultation, no wheezing or crackles. ABDOMEN: Soft, nontender, nondistended, normoactive bowel sounds. No palpable organomegaly. MUSCULOSKELETAL: No joint swelling or deformity. EXTREMITIES: No cyanosis, clubbing, or pedal edema. NEUROLOGICAL: Gross neurological examination did not reveal any focal deficits. SKIN: No rashes. Assessment and plan Fever UTI Elevated LFTs Abdominal pain Hyperbilirubinemia Depression Monitor vital signs Monitor CBC Monitor CMP Follow-up on blood cultures Urine cultures Continue IV Rocephin Avoid hepatotoxic agents ID following GI following Labs and medication were reviewed.. Continue same treatment. Continue with symptomatic treatment. Resume home medication. Monitor labs and vitals. DVT and GI prophylaxis. Further recommendations as per clinical course of the patient Dictation was produced using [employer] dictation software. please excuse any grammatical, word or spelling errors. Objective - Vital Signs Vital signs: Vital Signs Temp 99.9 F H 05/15/23 07:02 Pulse 107 H 05/15/23 08:00 Resp 18 05/15/23 08:00 BP 112/62 05/15/23 07:02 Pulse Ox 97 05/15/23 07:02 FiO2 Intake & Output 05/14/23 05/15/23 05/15/23 18:59 06:59 18:59 Other: # Voids 3 2 - Labs CBC & Chem 7: 05/15/23 07:25 05/15/23 07:25 Labs: Abnormal Lab Results - Last 24 Hours (Table) 05/14/23 05/15/23 05/15/23 Range/Units 07:05 07:25 07:25 WBC 11.9 H (3.8-10.6) k/uL RBC 3.72 L (3.80-5.40) m/uL Hgb 11.2 L (11.4-16.0) gm/dL Neutrophils # 9.8 H (1.3-7.7) k/uL Sodium 136 L (137-145) mmol/L Chloride 108 H (98-107) mmol/L Carbon Dioxide 20 L (22-30) mmol/L Glucose 118 H (74-99) mg/dL Calcium 7.8 L (8.4-10.2) mg/dL ALT 50 H (4-34) U/L Total Protein 4.8 L (6.3-8.2) g/dL Albumin 2.5 L (3.5-5.0) g/dL EBV Capsid Ag IgG Intrp Positive A (Negative) EBV Nuc Ag IgG Interp Positive A (Negative) Microbiology - Last 24 Hours (Table) 05/13/23 15:33 Blood Culture - Preliminary Blood 05/13/23 15:29 Blood Culture - Preliminary Blood
[2023-05-16] MEDS ORDERED: IBUPROFEN 800 MG TAB PO STA (07:42)
[2023-05-16] MEDS: lamoTRIgine 100 MG TAB PO SCH (07:55)
[2023-05-16] MEDS: ALPRAZolam 0.5 MG TAB PO SCH (07:56)
[2023-05-16] MEDS: buPROPion XL 150 MG TAB.ER.24H PO SCH (07:57)
--- NOTE | 2023-05-16 12:30 | P.PN ---
Subjective Progress Note Date: 05/16/23 patient is a 42-year-old lady with past medical history significant for depression, bipolar disorder presented to the ER for evaluation for fevers. Patient stated that she was having fevers over the weekend and went to see her primary care doctor's office on Wednesday, she has been having increased frequency of urination and burning. PCP evaluated the patient and diagnosed with her the UTI and discharged on Macrobid. Patient stated that he continued to spike fevers at home, was combining of chills at home as well. Also complaining of generalized abdominal pain. Complaining of loss of appetite as well. Complaining of nausea and vomiting as well. Because of the symptoms, patient came to the ER Initial lab work done in the ER showed WBC 9.8, hemoglobin 13.9, platelet count 194, sodium 138, potassium 3.6, BUN 14, creatinine 0.92, total bilirubin 2.9, AST 52, AST 57 Ultrasound Abdominal Done Showed Normal Gallbladder and No Bile Duct Dilatation Patient admitted to medicine service 05/14. Patient seen and examined. Lab work done this morning showed sodium 135, potassium 3.5, bilirubin has improved to 1.3, AST improved to 42, ALT improved to 68. Had low-grade fever of 100.8 overnight. States abdominal pain has improved. Denies any lethargy or weakness 05/15. Patient seen and examined. Hepatitis panel negative, EBV IgG positive. Fevers have improved. Denies any lethargy or weakness. 05/16. Patient seen and examined. Continues to be afebrile. No acute overnight. Possible discharge in the morning REVIEW OF SYSTEMS: CONSTITUTIONAL: As mentioned above CARDIOVASCULAR: No chest pain, no palpitations, no syncope. PULMONARY: No shortness of breath, no cough, GASTROINTESTINAL: No diarrhea, no nausea, no vomiting, no abdominal pain. NEUROLOGICAL: No headaches, no weakness, PHYSICAL EXAMINATION: GENERAL: The patient is alert and oriented x3, not in any acute distress. Well developed, well nourished. HEENT: Pupils are round and equally reacting to light. EOMI. No scleral icterus. No conjunctival pallor. Normocephalic, atraumatic. No pharyngeal erythema. No thyromegaly. CARDIOVASCULAR: S1 and S2 present. No murmurs, rubs, or gallops. PULMONARY: Chest is clear to auscultation, no wheezing or crackles. ABDOMEN: Soft, nontender, nondistended, normoactive bowel sounds. No palpable organomegaly. MUSCULOSKELETAL: No joint swelling or deformity. EXTREMITIES: No cyanosis, clubbing, or pedal edema. NEUROLOGICAL: Gross neurological examination did not reveal any focal deficits. SKIN: No rashes. Assessment and plan Fever UTI Elevated LFTs Abdominal pain Hyperbilirubinemia Depression Monitor vital signs Monitor CBC Monitor CMP Follow-up on blood cultures Follow-up on Urine cultures Continue IV Rocephin Continue Pyridium Avoid hepatotoxic agents ID following GI following Labs and medication were reviewed.. Continue same treatment. Continue with symptomatic treatment. Resume home medication. Monitor labs and vitals. DVT a nd GI prophylaxis. Further recommendations as per clinical course of the patient Dictation was produced using [employer] dictation software. please excuse any grammatical, word or spelling errors. Objective - Vital Signs Vital signs: Vital Signs Temp 98.6 F 05/16/23 07:07 Pulse 83 05/16/23 07:40 Resp 16 05/16/23 07:40 BP 105/64 05/16/23 07:07 Pulse Ox 96 05/16/23 07:07 FiO2 Intake & Output 05/15/23 05/16/23 05/16/23 18:59 06:59 18:59 Other: # Voids 4 2 2 - Labs CBC & Chem 7: 05/15/23 07:25 05/15/23 07:25 Labs: Microbiology - Last 24 Hours (Table) 05/13/23 15:29 Blood Culture Gram Stain - Final Blood Blood Culture - Preliminary 05/13/23 15:33 Blood Culture - Preliminary Blood
[2023-05-16 13:25] LABS: Basophils # (A) 0.03 X 10*3/uL (0.00-0.10); Basophils % (A) 0.3 %; Eosinophils # (A) 0.23 X 10*3/uL (0.04-0.35); Lymphocytes # (A) 2.12 X 10*3/uL (0.90-5.00); Lymphocytes % (A) 18.8 %; MCH 29.9 pg (27.0-32.0); MCHC 32.4 d/dL (32.0-37.0); MCV 92.4 FL (80.0-97.0); Mean Platelet Volume 11.8 FL (9.5-12.2); NRBC Per 100 WBC 0 X 10*3/uL (0.00-0.01); Neutrophils # (A) 7.43 X 10*3/uL (1.80-7.70); Neutrophils % (A) 66.1 %; Platelet Count 251 X 10*3/uL (140-440); RBC 3.68 X 10*6/uL (4.10-5.20); RDW 14.5 % (11.5-14.5); WBC 11.25 X 10*3/uL (4.50-10.00)
--- NOTE | 2023-05-16 14:44 | P.PN ---
Subjective Progress Note Date: 05/15/23 Principal diagnosis: Urinary tract infection Patient is a 42-year-old female with a past medical history significant for reflux osteoarthritis anxiety bipolar depression PTSD current smoker started getting sick on Wednesday , did have mostly urinary syndrome diagnosed with UTI treated with the Macrobid initial improvement subsequently worsening symptoms and fever for the patient presented to hospital. On today's evaluation that is 05/15/2023, the patient did have a low-grade fever of 99.9F this morning, the patient is breathing comfortably on room air , the patient denies chest pain, shortness of breath and no significant cough, patient denies abdominal pain, no nausea/vomiting or diarrhea patient did have improvement in the urinary symptoms Patient did have a white count of 11.9, creatinine is 0.73, hepatitis panel negative CMV antibodies negative Objective - Vital Signs Vital signs: Vital Signs Temp 99.9 F H 05/15/23 07:02 Pulse 107 H 05/15/23 08:00 Resp 18 05/15/23 08:00 BP 112/62 05/15/23 07:02 Pulse Ox 97 05/15/23 07:02 FiO2 Intake & Output 05/14/23 05/15/23 05/15/23 18:59 06:59 18:59 Other: # Voids 3 2 - Exam GENERAL DESCRIPTION: A middle-age female up in bed in no distress RESPIRATORY SYSTEM: Unlabored breathing , decreased breath sounds at bases HEART: S1 S2 regular rate and rhythm , ABDOMEN: Soft , no tenderness EXTREMITIES: No edema feet - Labs CBC & Chem 7: 05/16/23 05:55 05/15/23 07:25 Labs: Abnormal Lab Results - Last 24 Hours (Table) 05/14/23 05/15/23 05/15/23 Range/Units 07:05 07:25 07:25 WBC 11.9 H (3.8-10.6) k/uL RBC 3.72 L (3.80-5.40) m/uL Hgb 11.2 L (11.4-16.0) gm/dL Neutrophils # 9.8 H (1.3-7.7) k/uL Sodium 136 L (137-145) mmol/L Chloride 108 H (98-107) mmol/L Carbon Dioxide 20 L (22-30) mmol/L Glucose 118 H (74-99) mg/dL Calcium 7.8 L (8.4-10.2) mg/dL ALT 50 H (4-34) U/L Total Protein 4.8 L (6.3-8.2) g/dL Albumin 2.5 L (3.5-5.0) g/dL EBV Capsid Ag IgG Intrp Positive A (Negative) EBV Nuc Ag IgG Interp Positive A (Negative) Microbiology - Last 24 Hours (Table) 05/13/23 15:29 Blood Culture - Preliminary Blood 05/13/23 15:33 Blood Culture - Preliminary Blood Assessment and Plan (1) Transaminitis Current Visit: Yes Status: Acute Code(s): R74.01 - ELEVATION OF LEVELS OF LIVER TRANSAMINASE LEVELS SNOMED Code(s): 359584375 (2) UTI (urinary tract infection) Current Visit: Yes Status: Acute Code(s): N39.0 - URINARY TRACT INFECTION, SITE NOT SPECIFIED SNOMED Code(s): 83736647 Plan: 1patient with hospital with a fever generalized body aches and did have some navarro prapubic discomfort did have a urinary symptom high clinical suspicious for symptomatic urinary tract infection failing outpatient Macrobid therapy 2-patient with a penicillin allergy, with reaction described as immune not a true allergy 3Ultrasound of the abdomen was negative hepatitis panel negative CMV antibodies negative 4-patient has shown clinical improvement with the Rocephin to continue while waiting for the culture finalized and monitor clinical course closely Dictation was produced using [employer] dictation software. please excuse any grammatical, word or spelling errors. Time with Patient: Less than 30
[2023-05-16] MEDS ORDERED: FLUCONAZOLE 150 MG TAB PO STA (14:46)
--- NOTE | 2023-05-16 14:46 | P.PN ---
Subjective Progress Note Date: 05/16/23 Principal diagnosis: Urinary tract infection Patient is a 42-year-old female with a past medical history significant for reflux osteoarthritis anxiety bipolar depression PTSD current smoker started getting sick on Wednesday , did have mostly urinary syndrome diagnosed with UTI treated with the Macrobid initial improvement subsequently worsening symptoms and fever for the patient presented to hospital. On today's evaluation that is 05/16/2023, the patient remains to be afebrile, the patient is breathing comfortably on room air without the need for supplemental oxygen , the patient denies chest pain or cough, patient denies nausea/vomiting or diarrhea and denies any abdominal pain, patient been complaining of some lower back pain Patient did have a white count of 11.25, creatinine is 0.73, hepatitis panel negative CMV antibodies negative, EBV IgG positive IgM negative Objective - Vital Signs Vital signs: Vital Signs Temp 98.6 F 05/16/23 07:07 Pulse 83 05/16/23 07:40 Resp 16 05/16/23 07:40 BP 105/64 05/16/23 07:07 Pulse Ox 96 05/16/23 07:07 FiO2 Intake & Output 05/15/23 05/16/23 05/16/23 18:59 06:59 18:59 Other: # Voids 4 2 2 - Labs CBC & Chem 7: 05/16/23 05:55 05/15/23 07:25 Labs: Abnormal Lab Results - Last 24 Hours (Table) 05/16/23 Range/Units 05:55 WBC 11.25 H (4.50-10.00) X 10*3/uL RBC 3.68 L (4.10-5.20) X 10*6/uL Hgb 11.0 L (12.0-15.0) d/dL Hct 34.0 L (37.2-46.3) % Microbiology - Last 24 Hours (Table) 05/13/23 15:29 Blood Culture Gram Stain - Final Blood Blood Culture - Preliminary 05/13/23 15:33 Blood Culture - Preliminary Blood Assessment and Plan (1) Transaminitis Current Visit: Yes Status: Acute Code(s): R74.01 - ELEVATION OF LEVELS OF LIVER TRANSAMINASE LEVELS SNOMED Code(s): 809739561 (2) UTI (urinary tract infection) Current Visit: Yes Status: Acute Code(s): N39.0 - URINARY TRACT INFECTION, SITE NOT SPECIFIED SNOMED Code(s): 94508971 Plan: 1patient with hospital with a fever generalized body aches and did have some suprapubic discomfort did have a urinary symptom high clinical suspicious for symptomatic urinary tract infection failing outpatient Macrobid therapy 2-patient with a penicillin allergy, with reaction described as immune not a true allergy 3Ultrasound of the abdomen was negative hepatitis panel negative CMV antibodies negative, EBV IgG positive IgM is negative 4-positive blood culture staph epi likely skin contamination blood culture has been repeated documented clearance no need for vancomycin 4-patient has shown clinical improvement with the Rocephin to continue, with slightly elevated white count we will give her dose of Diflucan and repeat a CBC with a.m. lab Dictation was produced using [email or web address] dictation software. please excuse any grammatical, word or spelling errors. Time with Patient: Less than 30
[2023-05-16 22:19] VITALS: RESP 16
[2023-05-17 08:28] VITALS: TEMP 98.3
[2023-05-17] MEDS: buPROPion XL 150 MG TAB.ER.24H PO SCH (08:38)
[2023-05-17] MEDS: ALPRAZolam 0.5 MG TAB PO SCH (08:38)
[2023-05-17] MEDS: lamoTRIgine 100 MG TAB PO SCH (08:38)
[2023-05-17 08:47] VITALS: BP 102/72; PULSE 73
[2023-05-17 08:53] LABS: HCT 33.7 % (37.2-46.3); MCH 30.1 pg (27.0-32.0); MCHC 32.6 d/dL (32.0-37.0); MCV 92.1 FL (80.0-97.0); Mean Platelet Volume 11.5 FL (9.5-12.2); NRBC Per 100 WBC 0 X 10*3/uL (0.00-0.01); Platelet Count 302 X 10*3/uL (140-440); RBC 3.66 X 10*6/uL (4.10-5.20); RDW 14.5 % (11.5-14.5); WBC 9.53 X 10*3/uL (4.50-10.00)
[2023-05-17 09:01] LABS: ALT 53 U/L (8-44); AST 27 U/L (13-35); Albumin 2.9 d/dL (3.8-4.9); Albumin/Globulin Ratio 1.53 Ratio (1.60-3.17); Alkaline Phosphatase 95 U/L (41-126); BUN/Creat Ratio 12.14 Ratio (12.00-20.00); Blood Urea Nitrogen 8.5 mg/dL (9.0-27.0); Calcium 8.5 mg/dL (8.7-10.3); Carbon Dioxide 23.9 mmol/L (21.6-31.8); Chloride 109 mmol/L (96-109); Globulin 1.9 d/dL (1.6-3.3); Glucose 104 mg/dL (70-110); Potassium 3.4 mmol/L (3.5-5.5); Sodium 143 mmol/L (135-145); Total Bilirubin 0.3 mg/dL (0.3-1.2); Total Protein 4.8 d/dL (6.2-8.2)
[2023-05-17] MEDS ORDERED: IBUPROFEN 800 MG TAB PO STA (09:07)
[2023-05-17] MEDS ORDERED: POTASSIUM CHLORIDE ER 20 MEQ TAB.ER PO STA (13:16)
== END 2023-05-17 14:35 | disposition home or self-care (01) | DRG 690 ==
LOC: EC 09:07 → 4SSUR 14:15
PROVIDERS: ADMIT Internal Medicine; ATTEND Internal Medicine
DX: N39.0 Urinary tract infection, site not specified (principal); R17 Unspecified jaundice; Z86.16 Personal history of COVID-19; F17.210 Nicotine dependence, cigarettes, uncomplicated; F31.9 Bipolar disorder, unspecified; F43.10 Post-traumatic stress disorder, unspecified; Z20.822 Contact with and (suspected) exposure to COVID-19; F41.0 Panic disorder [episodic paroxysmal anxiety]; R10.9 Unspecified abdominal pain; I10 Essential (primary) hypertension; G43.909 Migraine, unspecified, not intractable, without status migrainosus; R74.01 Elevation of levels of liver transaminase levels; F41.9 Anxiety disorder, unspecified; K59.00 Constipation, unspecified; F17.290 Nicotine dependence, other tobacco product, uncomplicated; Z79.899 Other long term (current) drug therapy; Z82.49 Family history of ischemic heart disease and other diseases of the circulatory system; Z90.49 Acquired absence of other specified parts of digestive tract; Z90.710 Acquired absence of both cervix and uterus; Z98.51 Tubal ligation status
CPT/HCPCS: 36415; 76705; 76770; 80053; 80074; 80143; 81001; 82248; 83605; 83615; 83690; 85025; 85027; 85610; 85730; 86308; 86644; 86645; 86663; 86664; 86665; 87040; 87636; 96361; 96374; 96375; 96376; 99285

== ENCOUNTER 2024-10-08 14:37 | Emergency (ER) | payer MEDICARE ==
[2024-10-08 14:51] VITALS: TEMP 98
[2024-10-08] MEDS: KETOROLAC 15 MG/ML 1 ML VIAL IM STA (16:40)
[2024-10-08 17:35] VITALS: BP 137/84; PULSE 89; RESP 18
--- NOTE | 2024-10-08 17:36 | ED ---
General Adult HPI - General Chief complaint: Extremity Injury, Lower Stated complaint: knee pain Time Seen by Provider: 10/08/24 14:55 Source: patient Mode of arrival: ambulatory Limitations: no limitations - History of Present Illness Initial comments: 44-year-old female presents emergency department reporting left knee pain. Patient states that she went out last night to the bar. She was dancing. Her left knee gave out on her and she has had pain on the medial aspect since. She has been able to place a small amount of weight on the extremity however it is extremely painful. She has been using Motrin 800 at home for the pain without any relief. She denies any ankle or hip pain. No previous surgeries or hardware in the left knee. She denies any redness or swelling. No other alleviating, precipitating or modifying factors - Related Data Home Medications Medication Instructions Recorded Confirmed Ibuprofen [Motrin] 800 mg PO TID PRN 11/30/13 05/13/23 buPROPion XL [Wellbutrin XL] 300 mg PO DAILY 06/12/15 05/13/23 Oxybutynin Chloride 5 mg PO DAILY 02/15/17 05/13/23 lamoTRIgine [LaMICtal] 200 mg PO DAILY 02/15/17 05/13/23 Spironolactone [Aldactone] 100 mg PO DAILY 01/07/23 05/13/23 ALPRAZolam [Xanax] 0.5 mg PO DAILY 05/13/23 05/13/23 ALPRAZolam [Xanax] 0.5 mg PO DAILY PRN 05/13/23 05/13/23 Fluconazole [Diflucan] 150 mg PO ONCE PRN 05/13/23 05/13/23 Previous Rx's Medication Instructions Recorded Fluconazole [Diflucan] 100 mg PO DAILY 3 Days #3 tab 05/17/23 cefuroxime axetiL [Ceftin] 500 mg PO BID 3 Days #6 tab 05/17/23 Allergies Allergy/AdvReac Type Severity Reaction Status Date / Time amoxicillin Allergy "immune" Verified 05/13/23 14:19 pecan nut Allergy Anaphylaxis Verified 05/13/23 14:19 Review of Systems ROS Statement: Those systems with pertinent positive or pertinent negative responses have been documented in the HPI. ROS Other: All systems not noted in ROS Statement are negative. Past Medical History Past Medical History: GERD/Reflux, Osteoarthritis (OA) Additional Past Medical History / Comment(s): DDD, bulging and herniated discs. OCC PAIN IN LEGS, OCC NT LEGS/ARMS.palpitations with anxiety, constipation, occ urinary leakage, hx migraines, varicose veins, IBS, History of Any Multi-Drug Resistant Organisms: None Reported Past Surgical History: Appendectomy, Hysterectomy, Tubal Ligation Additional Past Surgical History / Comment(s): PELVIC LAPAROSCOPY, PILONIDAL CYSTECTOMY, pain clinic procedures. Past Anesthesia/Blood Transfusion Reactions: No Reported Reaction Past Psychological History: Anxiety, Bipolar, Panic Disorder, PTSD Smoking Status: Current some day smoker, Vaper Past Alcohol Use History: Occasional Past Drug Use History: None Reported - Past Family History Mother Family Medical History: No Reported History Additional Family Medical History / Comment(s): . Father Family Medical History: Coronary Artery Disease (CAD) General Exam Limitations: no limitations Head exam: Present: atraumatic, normocephalic, normal inspection Extremities exam: Present: tenderness (To palpation of the medial aspect of the knee. Pain with full extension. 2+ DP and PT pulses. Compartments are soft. Cap refill less than 3 seconds. Patient able to flex and extend actively) Course Vital Signs 10/08/24 10/08/24 14:48 17:33 Temperature 98 F Pulse Rate 85 89 Respiratory 16 18 Rate Blood Pressure 126/87 137/84 O2 Sat by Pulse 98 98 Oximetry Medical Decision Making - Medical Decision Making Was pt. sent in by a medical professional or institution (, PA, EXTENSION COURSE COUNSELOR, urgent care, hospital, or skilled nursing...) When possible be specific @ -No Did you speak to anyone other than the patient for history (EMS, parent, family, police, friend...)? What history was obtained from this source @ -No Did you review nursing and triage notes (agree or disagree)? Why? @ -I reviewed and agree with nursing and triage notes Were old charts reviewed (outside hosp., previous admission, EMS record, old EK G, old radiological studies, urgent care reports/EKG's, skilled nursing records)? Report findings @ -No old charts were reviewed Differential Diagnosis (chest pain, altered mental status, abdominal pain women, abdominal pain men, vaginal bleeding, weakness, fever, dyspnea, syncope, headache, dizziness, GI bleed, back pain, seizure, CVA, palpatations, mental health, musculoskeletal)? @ -Differential Musculoskeletal Muscular strain, contusion, ligament sprain, fracture, arthritis, septic arthritis, bursitis, cellulitis, muscle spasm, nerve compression, DVT, arterial occlusion, herpes zoster, electrolyte abnormality, tumor.... This is not meant to be in all inclusive list EKG interpreted by me (3pts min.). @ -Not done X-rays interpreted by me (1pt min.). @ -Yes which demonstrates no acute process CT interpreted by me (1pt min.). @ -None done U/S interpreted by me (1pt. min.). @ -None done What testing was considered but not performed or refused? (CT, X-rays, U/S, labs)? Why? @ -None What meds were considered but not given or refused? Why? @ -None Did you discuss the management of the patient with other professionals (professionals i.e. , PA, EXTENSION COURSE COUNSELOR, lab, RT, psych nurse, social media job titles, waterproof coating machine tender, teacher, soil science technical officer, case advocate)? Give summary @ -No Was smoking cessation discussed for >3mins.? @ -No Was critical care preformed (if so, how long)? @ -No Were there social determinants of health that impacted care today? How? (Homelessness, low income, unemployed, alcoholism, drug addiction, transportation, low edu. Level, literacy, decrease access to med. care, snf, r ehab)? @ -No Was there de-escalation of care discussed even if they declined (Discuss DNR or withdrawal of care, Hospice)? DNR status @ -No What co-morbidities impacted this encounter? (DM, HTN, Smoking, COPD, CAD, Cancer, CVA, ARF, Chemo, Hep., AIDS, mental health diagnosis, sleep apnea, morbid obesity)? @ -None Was patient admitted / discharged? Hospital course, mention meds given and route, prescriptions, significant lab abnormalities, going to OR and other pertinent info. @ -Upon arrival patient seen and evaluated in hallway 19. Thorough history and physical exam was performed. Patient was given a dose of Toradol. X-rays performed the left knee which demonstrates no acute process. There is concern for injury to the meniscus versus MCL. Patient is placed in an mildred wrap. She is instructed to rest, ice and elevate the extremity. Take Motrin 600 mg every 6 hours as needed for pain control. Patient is given a pair of crutches and instructed to ambulate as tolerated. Follow-up with the orthopedic office. Return for any new or worsening symptoms. Patient agreeable plan was discharged in stable condition Undiagnosed new problem with uncertain prognosis? @ -No Drug Therapy requiring intensive monitoring for toxicity (Heparin, Nitro, Insulin, Cardizem)? @ -No Were any procedures done? @ -No Diagnosis/symptom? @ -Acute left knee pain, suspected internal derangement Acute, or Chronic, or Acute on Chronic? @ -Acute Uncomplicated (without systemic symptoms) or Complicated (systemic symptoms)? @ -uncomplicated Side effects of treatment? @ -No Exacerbation, Progression, or Severe Exacerbation? @ -No Poses a threat to life or bodily function? How? (Chest pain, [place], [place], pneumonia, PE, COPD, DKA, ARF, appy, cholecystitis, CVA, Diverticulitis, Homicidal, Suicidal, threat to staff... and all critical care pts) @ -No Disposition Clinical Impression: Left knee pain, Internal derangement of knee Disposition: HOME SELF-CARE Condition: Stable Instructions (If sedation given, give patient instructions): Knee Pain (ED) Additional Instructions: Rest, ice and elevate the extremity. Wear the compression wrap. Follow-up with the orthopedic doctor as you may need further imaging. Ambulate only as tolerated. Return for any new or worsening symptoms Is patient prescribed a controlled substance at d/c from ED?: No Referrals: Ana Cristina Cantu MD [Primary Care Provider] - 1-2 days Margy Iyer DO [Doctor of Osteopathic Medicine] - 1-2 days Time of Disposition: 17:36
--- NOTE | 2024-10-08 17:38 | XR ---
EXAMINATION TYPE: XR knee complete LT DATE OF EXAM: 10/08/2024 5:21 PM COMPARISON: None. CLINICAL INDICATION: Female, 44 years old with history of pain, fall, pain TECHNIQUE: Three views of the left knee are obtained. FINDINGS: There is no acute fracture/dislocation evident in left lower knee. The tri-compartment julia int spaces appear within normal limits. The overlying soft tissue appears unremarkable. IMPRESSION: There is no acute fracture or dislocation in the left lower knee. [facility], , 10/08/2024 5:35 PM
== END 2024-10-08 18:07 | disposition home or self-care (01) ==
LOC: EC 14:37
DX: M23.92 Unspecified internal derangement of left knee (principal); F17.290 Nicotine dependence, other tobacco product, uncomplicated; Z88.0 Allergy status to penicillin; Z91.018 Allergy to other foods
CPT/HCPCS: 73562; 99283; 96372; J1885